=== PATIENT | female | born 1995 | race Caucasian/White ===

== ENCOUNTER 2018-09-10 10:12 | Emergency (ER) | payer SELFPAY ==
[~2018-09-10] VITALS: Ht 162.6 cm; Wt 55.8 kg
--- OUTSIDE RECORDS SUMMARY | 2018-09-10 10:17 | XMS REPORT ---
Author Author SALOMÓNJJANNIE [facility] Address Unknown Care Team Providers Care Retail Client Solutions Analyst Name Role Phone ANNIE YUEN Unavailable PROBLEMS Unknown Problems ALLERGIES Substance Reaction Event Type Date Status Codeine Sulfate Unknown Drug Allergy Feb, Active ENCOUNTERS Encounter Location Date Diagnosis [facility] [id number] [place] [phone] Feb, [facility] Z01.20 [facility] [id number] [place] [phone] Feb, [facility] [id number] [place] [phone] Jan, Acute allergic serous otitis media of both ears H65.113 IMMUNIZATIONS No Known Immunizations SOCIAL HISTORY Never Assessed REASON FOR VISIT PRAVEEN PLAN OF CARE Activity Details Follow Up prn Reason:hygiene VITAL SIGNS Blood pressure systolic 115 mmHg 2017-03-23 Blood pressure diastolic 87 mmHg 2017-03-23 MEDICATIONS No Known Medications RESULTS No Results PROCEDURES Procedure Date Ordered Result Body Site LTD ORAL EVALUATION - PROBLEM FOCUS Mar 23, 2017 INTRAORL-PERIAPICAL 1 FILM [id number] Mar 23, 2017 PANORAMIC FILM SEE ALSO CODE [id number] Mar 23, 2017 INSTRUCTIONS MEDICATIONS ADMINISTERED No Known Medications
--- OUTSIDE RECORDS SUMMARY | 2018-09-10 10:17 | XMS REPORT | Continuity of Care Document ---
Author Organization Unknown Address Unknown Allergies Active Description Code Type Severity Reaction Onset Reported/Identified Relationship to Patient Clinical Status Yes codeine [id number] Drug Allergy Unknown N/A 03/21/2015 Medications There is no data. Problems Date Dx Coded Attending Type Code Diagnosis Diagnosed By 03/21/2015 Rigoberto Banerjee J03.90 03/21/2015 Rigoberto Banerjee K12.2 Procedures There is no data. Results There is no data. Encounters ACCT No. Visit Date/Time Discharge Status Pt. Type Provider Facility Loc./Unit Complaint [id number] 09/05/2018 12:05:00 09/05/2018 23:59:59 [facility] Outpatient PILI LAO LAC [facility] [id number] 03/21/2015 14:06:00 03/21/2015 16:20:00 DIS Emergency Rigoberto Banerjee [facility]
--- OUTSIDE RECORDS SUMMARY | 2018-09-10 10:17 | XMS REPORT ---
Author Author BRIAN MARSH Organization [facility] Address [address] [place] [address] Care Team Providers Care Tanning Drum Operator Name Role Phone BRIAN MARSH Unavailable PROBLEMS Unknown Problems ALLERGIES Substance Reaction Event Type Date Status Codeine Sulfate Unknown Drug Allergy Nov, Active ENCOUNTERS Encounter Location Date Diagnosis [facility] [address] [phone] Nov, Sore throat J02.9 ; Acute nasopharyngitis (common cold) J00 and Cough R05 [facility] [id number] [place] [phone] Feb, Dental examination Z01.20 [facility] [id number] [place] [phone] Feb, [facility] [id number] [place] [phone] Jan, Acute allergic serous otitis media of both ears H65.113 IMMUNIZATIONS No Known Immunizations SOCIAL HISTORY Never Assessed REASON FOR VISIT Sore throat for the last few days JStrasserRN PLAN OF CARE Activity Details Follow Up 1 Week, prn Reason:if symptoms worsen or not improving VITAL SIGNS Height 64 in 2017-12-03 Weight 114.6 lbs 2017-12-03 Temperature 98.4 degrees Fahrenheit 2017-12-03 Heart Rate 84 bpm 2017-12-03 Respiratory Rate 20 2017-12-03 BMI 19.67 kg/m2 2017-12-03 Blood pressure systolic 120 mmHg 2017-12-03 Blood pressure diastolic 80 mmHg 2017-12-03 MEDICATIONS Medication Instructions Dosage Frequency Start Date End Date Duration Status Flonase 50 MCG/ACT Nasally twice a day 1 spray in each nostril 12h Nov, 30 day(s) Active Benzonatate 100 mg Orally Three times a day 1 capsule as needed 8h Nov, Nov, 05 days Active RESULTS Name Result Date Reference Range STREP A (IN HOUSE) 2017-12-03 STREP A negative Control + Lot # [id number] Exp date 2020-02-08 PROCEDURES Procedure Date Ordered Result Body Site STREP A ASSAY W/OPTIC Dec 03, 2017 INSTRUCTIONS MEDICATIONS ADMINISTERED No Known Medications MEDICAL (GENERAL) HISTORY Type Description Date Surgical History tonsillectomy
--- OUTSIDE RECORDS SUMMARY | 2018-09-10 10:17 | XMS REPORT | Continuity of Care Document ---
Author Author [facility] Address Unknown Phone Unavailable Care Team Providers Care Irs Agent Name Role Phone Patient States, No PCP Unavailable Unavailable Insurance Providers Payer Name Policy Number Subscriber Name Relationship Self-Pay Self-Pay AMBROSE RUIZ Self Advance Directives Directive Response Recorded Date/Time Advance Directives: No 03/21/15 1:58pm Chief Complaint and Reason for Visit Reason for Visit Acute tonsillitis Problems Medical Problems Problem Onset Date Status Acute tonsillitis Unknown Active Medications Medication Dose Route Sig Days/Qty Instructions Order Date Discontinued Date Status Amoxicillin (Amoxil*) 500 MG CAPSULE 500 MG ORAL Three times daily For infection 30 Qty 03/21/15 Active Family History Relationship Name Date of Condition Age ( At Onset ) Cause of Age ( At ) Age Gender Recorded Date/Time MOTHER Family history of cardiovascular disease F 03/21/15 1414 Social History Query Response Start Date Stop Date Smoking status: Never smoker Hospital Discharge Instructions No hospital discharge instructions. Plan of Care Discharge Date 03/21/15 4:20pm Disposition HOME, SELF-CARE or ASST LIVING Condition at Discharge Stable Instructions/Education Provided Tonsillitis (ED) Prescriptions See Medications Section [facility] Additional Instructions/Education -- Your strep and mononucleosis tests today are negative and the rest of your lab work is within normal limits. You have been given a long-acting steroid to help reduce inflammation in your throat. -- Take your antibiotic as directed. A prescription has been transmitted to your pharmacy of choice. -- For pain, take ohbw-lhj-ipacvie medicine, may use generic, as follows: 1000mg acetaminophen (two extra-strength Tylenol) every eight hours, plus 400mg ibuprofen (two 200 mg tabs, Advil/Motrin) every 8 hours. Keep a chart and take medications on a regularly scheduled basis. DO NOT exceed recommended dose. -- Please call the office of your primary care provider within 24-48 hours make arrangements for recheck and follow-up care. Return to the ER at any time for worsening or worrisome symptoms. Some of your test results may not be complete prior to your leaving the Emergency Department. The Emergency Department is not authorized to give test results over the phone. Please contact the doctor's office listed on form for your final results. Follow up with your primary care physician or return to the Emergency Department for worsening or worrisome symptoms. * Emergency Department phone number: [phone] MEDICAL RECORD If you need copies of your X-rays, call [phone]. If you need copies of your medical record, including lab results, a signed authorization for release of records will be required. A telephone call for release of Health Information is not allowed. BILLING Billing can sometimes be confusing and frustrating. To help avoid confusion in the future, please take a moment to acquaint yourself with the billing parties for services. SERVICE BILLING [facility] ED Physician Services [phone] X-rays [facility] Patients will receive bills for services from the appropriate provider. If have any questions about your [facility] bill, our staff will be happy to assist you. Please call [phone] and ask for the billing department. THANK YOU for choosing [facility] as your emergency care provider. Care Plan and Goals ~~Discharge Care Plan~~ Problem: Sore throat Goal: Pain decreased from sore throat. Instructions: Gargle with warm salt water to help reduce swelling and pain. Drink plenty of fluids. Hot fluids, such as tea or soup, may help decrease throat irritation. Take medication(s) as directed. Follow up with primary care physician as directed. Functional Status No functional status results. Allergies, Adverse Reactions, Alerts Allergen Type Severity Reaction Status Last Updated codeine Allergy Unknown Active 03/21/15 Immunizations No Known History of Immunizations. Vital Signs Vital Reading Collection Date/Time Result Blood Pressure 03/21/15 4:18pm 110/61 Blood Pressure Source 03/21/15 4:18pm SI Patient Temperature 03/21/15 4:18pm 97.7 Temperature Source 03/21/15 4:18pm O Respiratory Rate 03/21/15 4:18pm 18 Pulse Rate 03/21/15 4:18pm 85 Pulse Location 03/21/15 4:18pm DYN Bedside Pulse Oximetry 03/21/15 4:18pm 97 Height 03/21/15 1:58pm 162.6 cm Height 03/21/15 1:58pm 5 ft 4 in Weight 03/21/15 1:58pm 46.4 kg Weight 03/21/15 1:58pm 102.0 lb Body Mass Index 03/21/15 1:58pm 17.5 Procedures No Known History of Procedures. Results Test Source Date Result Interp. Ref. Range Comments Group A Streptococcus Screen 03/21/15 NEGATIVE - ALL NEGATIVES FOR GROUP A STREP BY EIA WILL BE CONFIRMED BY CULTURE. Basophils # 03/21/15 0.0 0.0 - 0.2 Basophils % 03/21/15 0.3 % 0.0 - 2.0 Eosinophils # 03/21/15 0.1 0.0 - 0.7 Eosinophils % 03/21/15 1.5 % 0 - 4.0 Granulocytes # 03/21/15 4.2 1.4 - 6.5 Granulocytes (%) 03/21/15 71.6 % 42.2 - 75.2 Hematocrit 03/21/15 42.2 % 37.0 - 47.0 Hemoglobin 03/21/15 13.7 g/dl 12.5 - 16.0 Lymphocytes # 03/21/15 1.1 L 1.2 - 3.4 Lymphocytes % 03/21/15 19.4 % L 20.0 - 51.0 Mean Corpuscular Hemoglobin 03/21/15 30 pg 27.0 - 31.0 Mean Corpuscular Hemoglobin Concent 03/21/15 33 g/dl L 33.0 - 37.0 Mean Corpuscular Volume 03/21/15 94 fl 80.0 - 100.0 Mean Platelet Volume 03/21/15 11.0 fl H 7.4 - 10.4 Monocytes # 03/21/15 0.4 0.1 - 0.6 Monocytes % 03/21/15 7.0 % 1.7 - 9.3 Platelet Count 03/21/15 157 K/mm3 130 - 400 Red Blood Count 03/21/15 4.51 M/mm3 4.10 - 5.30 Red Cell Distribution Width 03/21/15 12.0 % 11.5 - 14.5 White Blood Count 03/21/15 5.9 K/mm3 4.8 - 10.8 Alanine Aminotransferase (ALT/SGPT) 03/21/15 19 U/L 9 - 52 Albumin 03/21/15 4.6 gm/dL 3.5 - 5.0 Alkaline Phosphatase 03/21/15 76 U/L 50 - 136 Anion Gap 03/21/15 11 mmol/L 7 - 16 Aspartate Amino Transf (AST/SGOT) 03/21/15 10 U/L L 15 - 37 Blood Urea Nitrogen 03/21/15 6 mg/dL L 7 - 17 Calcium Adjusted for Albumin 03/21/15 9.2 mg/dL 8.4 - 10.2 Calcium Level 03/21/15 9.7 mg/dL 8.4 - 10.2 Carbon Dioxide Level 03/21/15 27 mmol/L 22 - 30 Chloride Level 03/21/15 105 mmol/L 98 - 107 Creatinine 03/21/15 0.78 mg/dL 0.52 - 1.04 Estimated GFR () 03/21/15 113 - Estimated GFR (Non- 03/21/15 93 - Glucose Level 03/21/15 98 mg/dL 74 - 106 Potassium Level 03/21/15 4.5 mmol/L 3.4 - 5.0 Serum Total Protein 03/21/15 8.3 gm/dL H 6.4 - 8.2 Sodium Level 03/21/15 144 mmol/L 137 - 145 Total Bilirubin 03/21/15 0.5 mg/dL 0.0 - 1.0 Monoscreen 03/21/15 NEGATIVE - Encounters Encounter Location Date/Time Departed Emergency [facility] 03/21/15 4:20pm Recent Diagnosis Acute tonsillitis
[2018-09-10 10:45] LABS: BILIRUBIN,URINE NEGATIVE (NEGATIVE); CLARITY,URINE SLIGHTLY CLOUDY; COLOR,URINE YELLOW; GLUCOSE, URINE (UA) NEGATIVE (NEGATIVE); KETONES,URINE NEGATIVE (NEGATIVE); LEUKOCYTE ESTERASE ,URINE 2+ (NEGATIVE); NITRITE,URINE NEGATIVE (NEGATIVE); PH,URINE 5 (5-9); PROTEIN,URINE NEGATIVE (NEGATIVE); UROBILINOGEN,URINE NORMAL (NORMAL)
[2018-09-10] MEDS ORDERED: KETOROLAC 30 MG/ML VIAL IVP ONE (10:45)
[2018-09-10 10:46] LABS: BASOPHILS % (AUTO) 0 % (0-10); EOSINOPHILS # (AUTO) 0.1 10^3/uL (0.0-0.3); EOSINOPHILS % (AUTO) 1 % (0-10); HEMATOCRIT 43 % (35-52); HEMOGLOBIN 14.6 G/DL (11.5-16.0); LYMPHOCYTES # (AUTO) 1.7 X 10^3 (1.0-4.0); LYMPHOCYTES % (AUTO) 15 % (12-44); MEAN CORPUSCULAR HEMOGLOBIN 30 PG (25-34); MEAN CORPUSCULAR HGB CONC 34 G/DL (32-36); MEAN CORPUSCULAR VOLUME 89 FL (80-99); MEAN PLATELET VOLUME 11.2 FL (7.4-10.4); MONOCYTES # (AUTO) 0.8 X 10^3 (0.0-1.0); MONOCYTES % (AUTO) 7 % (0-12); NEUTROPHILS % (AUTO) 78 % (42-75); PLATELET COUNT 194 10^3/uL (130-400); RED CELL DISTRIBUTION WIDTH 12.9 % (10.0-14.5); WHITE BLOOD COUNT 11.5 10^3/uL (4.3-11.0)
--- NOTE | 2018-09-10 10:48 | ED Abdominal Pain ---
General Chief Complaint: Abdominal/GI Problems Stated Complaint: STOMACH PAIN Nursing Triage Note: Pt complaining of RLQ pain that started last Tuesday. Pt went to doctor on tuesday and they said to return if not feeling better in a few days. Pt has intermittent nausea with the lower abd pain. Sepsis Screen: No Definite Risk Source of Information: Patient Exam Limitations: No Limitations History of Present Illness Date Seen by Provider: September 10, 2018 Time Seen by Provider: 10:46 Initial Comments To ER lower abdominal pain for the past week. Last weekend at the onset of this pain she was seen by primary care without etiology identified. The pain initially began the left lower quadrant and had radiated to the right lower quadrant. For the past few days the pain has been more consistent to the right lower abdomen. She reports chills but no fevers. Nausea but no vomiting. No bowel changes no dysuria. Denies vaginal discharge. Pain is 7 out of 10 when lying flat and 10 out of 10 when standing upright. Timing/Duration: 1-2 Days Severity/Quality: Moderate Location: RLQ, Suprapubic Radiation: No Radiation Activities at Onset: None Associated Symptoms: Nausea/Vomiting Allergies and Home Medications Allergies Coded Allergies: codeine (Verified Allergy, Unknown, 09/10/18) Home Medications Cefuroxime Axetil 250 Mg Tablet, 250 MG PO BID Prescribed by: WAN TAMEZ on 09/10/18 1309 Hydrocodone/Acetaminophen 1 Each Tablet, 1 TAB PO Q4-6HR PRN for PAIN-SEVERE Prescribed by: WAN TAMEZ on 09/10/18 1309 Patient Home Medication List Home Medication List Reviewed: Yes Review of Systems Review of Systems Constitutional: see HPI EENTM: No Symptoms Reported Respiratory: No Symptoms Reported Cardiovascular: No Symptoms Reported Gastrointestinal: See HPI, Abdominal Pain, Nausea Genitourinary: No Symptoms Reported Musculoskeletal: no symptoms reported Skin: no symptoms reported Psychiatric/Neurological: No Symptoms Reported Endocrine: No Symptoms Reported Hematologic/Lymphatic: No Symptoms Reported Past Oqfptqd-Adtnvj-Pnwull Hx Patient Social History Alcohol Use: Denies Use Recreational Drug Use: No Smoking Status: Never a Smoker 2nd Hand Smoke Exposure: No Recent Foreign Travel: No Contact w/Someone Who Travel: No Recent Infectious Disease Expo: No Recent Hopitalizations: No Seasonal Allergies Seasonal Allergies: No Past Medical History Surgeries: Yes Tonsillectomy Respiratory: No Cardiac: No Neurological: No Genitourinary: No Gastrointestinal: No Musculoskeletal: No Endocrine: No HEENT: No Cancer: No Psychosocial: No Integumentary: No Blood Disorders: No Physical Exam Vital Signs Vital Signs - First Documented 09/10/18 10:14 Temp 97.7 Pulse 102 Resp 16 B/P (MAP) 151/98 (115) Pulse Ox 100 O2 Delivery Room Air Capillary Refill : Less Than 3 Seconds Height/Weight/BMI Height: 5'4.00" Weight: 123lbs. oz. 55.267578ge; BMI Method:Stated General Appearance: WD/WN, no apparent distress HEENT: PERRL/EOMI, normal ENT inspection Neck: non-tender, full range of motion Respiratory: no respiratory distress, no accessory muscle use Gastrointestinal: normal bowel sounds, soft, tenderness (suprapubic both lower quadrant) Extremities: normal range of motion, non-tender Neurologic/Psychiatric: alert, normal mood/affect, oriented x 3 Skin: normal color, warm/dry Progress/Results/Core Measures Results/Orders Lab Results Laboratory Tests Test 09/10/18 10:20 09/10/18 10:23 Range/Units Urine Color YELLOW Urine Clarity SLIGHTLY CLOUDY Urine pH 5 5-9 Urine Specific Backus 1.025 H 1.016-1.022 Urine Protein NEGATIVE NEGATIVE Urine Glucose (UA) NEGATIVE NEGATIVE Urine Ketones NEGATIVE NEGATIVE Urine Nitrite NEGATIVE NEGATIVE Urine Bilirubin NEGATIVE NEGATIVE Urine Urobilinogen NORMAL NORMAL MG/DL Urine Leukocyte Esterase 2+ H NEGATIVE Urine RBC (Auto) NEGATIVE NEGATIVE Urine RBC NONE /HPF Urine WBC 5-10 H /HPF Urine Squamous Epithelial Cells 5-10 /HPF Urine Crystals NONE /LPF Urine Bacteria MODERATE H /HPF Urine Casts NONE /LPF Urine Mucus SMALL H /LPF Urine Culture Indicated YES White Blood Count 11.5 H 4.3-11.0 10^3/uL Red Blood Count 4.83 4.35-5.85 10^6/uL Hemoglobin 14.6 11.5-16.0 G/DL Hematocrit 43 35-52 % Mean Corpuscular Volume 89 80-99 FL Mean Corpuscular Hemoglobin 30 25-34 PG Mean Corpuscular Hemoglobin Concent 34 32-36 G/DL Red Cell Distribution Width 12.9 10.0-14.5 % Platelet Count 194 130-400 10^3/uL Mean Platelet Volume 11.2 H 7.4-10.4 FL Neutrophils (%) (Auto) 78 H 42-75 % Lymphocytes (%) (Auto) 15 12-44 % Monocytes (%) (Auto) 7 0-12 % Eosinophils (%) (Auto) 1 0-10 % Basophils (%) (Auto) 0 0-10 % Neutrophils # (Auto) 9.0 H 1.8-7.8 X 10^3 Lymphocytes # (Auto) 1.7 1.0-4.0 X 10^3 Monocytes # (Auto) 0.8 0.0-1.0 X 10^3 Eosinophils # (Auto) 0.1 0.0-0.3 10^3/uL Basophils # (Auto) 0.0 0.0-0.1 10^3/uL Sodium Level 138 135-145 MMOL/L Potassium Level 3.5 L 3.6-5.0 MMOL/L Chloride Level 105 98-107 MMOL/L Carbon Dioxide Level 20 L 21-32 MMOL/L Anion Gap 13 5-14 MMOL/L Blood Urea Nitrogen 11 7-18 MG/DL Creatinine 0.78 0.60-1.30 MG/DL Estimat Glomerular Filtration Rate > 60 BUN/Creatinine Ratio 14 Glucose Level 100 70-105 MG/DL Calcium Level 9.8 8.5-10.1 MG/DL Corrected Calcium 8.5-10.1 MG/DL Total Bilirubin 0.5 0.1-1.0 MG/DL Aspartate Amino Transf (AST/SGOT) 10 5-34 U/L Alanine Aminotransferase (ALT/SGPT) 21 0-55 U/L Alkaline Phosphatase 62 40-136 U/L Total Protein 7.8 6.4-8.2 GM/DL Albumin 4.7 H 3.2-4.5 GM/DL Serum Test, Qualitative NEGATIVE NEGATIVE My Orders Orders - WAN TAMEZ APRN Cbc With Automated Diff (09/10/18 10:39) Comprehensive Metabolic Panel (09/10/18 10:39) Ua Culture If Indicated (09/10/18 10:39) Hcg,Qualitative Serum (09/10/18 10:39) Ed Iv/Invasive Line Start (09/10/18 10:39) Ketorolac Injection (Toradol Injection) (09/10/18 10:45) Urine Culture (09/10/18 10:20) Ct Abdomen/Pelvis W (09/10/18 11:12) Iohexol Injection (Omnipaque 350 Mg/Ml 1 (09/10/18 11:45) Received Contrast (Hold Metformin- Contr (09/10/18 11:45) Ns (Ivpb) (Sodium Chloride 0.9%) (09/10/18 11:45) Medications Given in ED Current Medications Medications Dose Ordered Sig/Christian Route Start Time Stop Time Status Last Admin Dose Admin Iohexol 100 ml ONCE ONCE IV 09/10/18 11:45 09/10/18 11:47 DC 09/10/18 12:14 100 ML Ketorolac Tromethamine 15 mg ONCE ONCE IVP 09/10/18 10:45 09/10/18 10:46 DC 09/10/18 10:54 15 MG Sodium Chloride 250 ml ONCE ONCE IV 09/10/18 11:45 09/10/18 11:47 DC 09/10/18 12:14 80 ML Vital Signs/I&O 09/10/18 09/10/18 10:14 12:18 Temp 97.7 Pulse 102 88 Resp 16 16 B/P (MAP) 151/98 (115) 118/74 (89) Pulse Ox 100 100 O2 Delivery Room Air Room Air Blood Pressure Mean: 115 Departure Communication (Admissions) Her symptoms have been present for one week not consistent with appendicitis. Her CT failed to adequately visualize the appendix but there are no sensory signs of appendicitis. She does have urinary tract infection and right ovarian cyst which likely in combination is the cause of her bilateral lower quadrant abdominal pain. Impression Primary Impression: Urinary tract infection Qualified Codes: N30.00 - Acute cystitis without hematuria Additional Impression: Ovarian cyst Qualified Codes: N83.209 - Unspecified ovarian cyst, unspecified side Disposition: HOME, SELF-CARE Condition: Stable Departure-Patient Inst. Decision time for Depature: 13:07 Referrals: NO,LOCAL PHYSICIAN (PCP/Family) Primary Care Physician Patient Instructions: Ovarian Cyst (DC), Urinary Tract Infection, Adult (DC) Add. Discharge Instructions: 1. Antibiotic as directed 2. Tylenol and ibuprofen for pain control 3. Return to ER for any concerns. All discharge instructions reviewed with patient and/or family. Voiced understanding. Scripts Hydrocodone/Acetaminophen ([place] 5-325 Tablet) 1 Each Tablet 1 TAB PO Q4-6HR PRN for PAIN-SEVERE MDD 10 TABS for 7 Days, #10 TAB Prov: WAN TAMEZ APRN 09/10/18 Cefuroxime Axetil (Cefuroxime) 250 Mg Tablet 250 MG PO BID, #10 TAB Prov: WAN TAMEZ APRN 09/10/18 WAN TAMEZ APRN September 10, 2018 10:48
[2018-09-10 10:53] LABS: BACTERIA,URINE MODERATE /HPF
[2018-09-10 10:58] LABS: ALANINE AMINOTRANSFERASE 21 U/L (0-55); ALBUMIN 4.7 GM/DL (3.2-4.5); ALKALINE PHOSPHATASE 62 U/L (40-136); BILIRUBIN,TOTAL 0.5 MG/DL (0.1-1.0); BUN/CREATININE RATIO 14; CALCIUM 9.8 MG/DL (8.5-10.1); CARBON DIOXIDE 20 MMOL/L (21-32); CHLORIDE 105 MMOL/L (98-107); CREATININE SERUM 0.78 MG/DL (0.60-1.30); GFR ESTIMATED > 60; GLUCOSE 100 MG/DL (70-105); POTASSIUM 3.5 MMOL/L (3.6-5.0); SODIUM 138 MMOL/L (135-145); TOTAL PROTEIN 7.8 GM/DL (6.4-8.2)
[2018-09-10] MEDS ORDERED: HOLD METFORMIN - RECEIVED CONTRAST 20 ML VIAL IV SCH (11:45)
[2018-09-10] MEDS ORDERED: IOHEXOL 350 MG/ML 100 ML (OMNIPAQUE 350) VIAL IV ONE (11:45)
[2018-09-10] MEDS ORDERED: NS 250 ML (IVPB) BAG IV ONE (11:45)
[2018-09-10 12:18] VITALS: BP 118/74
--- NOTE | 2018-09-10 12:42 | Diagnostic Imaging Report ---
PROCEDURE: CT abdomen and pelvis with contrast. TECHNIQUE: Multiple contiguous axial images were obtained through the abdomen and pelvis after administration of intravenous contrast. Auto Exposure Controls were utilized during the CT exam to meet ALARA standards for radiation dose reduction. INDICATION: Approximately one week history of right lower quadrant abdominal pain. Intermittent nausea. CORRELATION STUDY: None. FINDINGS: LIVER: Unremarkable. GALLBLADDER: Present and unremarkable. No bile duct dilatation. SPLEEN: Unremarkable. PANCREAS: Unremarkable. ADRENAL GLANDS: Unremarkable. KIDNEYS: Normal configuration. No calcification or obstruction. ABDOMINAL AORTA: Unremarkable, nonaneurysmal. GASTROINTESTINAL TRACT: Stomach relatively collapsed but does contain some residual gastric contents. A few mildly prominent fluid-filled loops of small bowel are present. Slight hyperemia suggested could be reflective of nonspecific enteritis. There is some fluid in the proximal colon. Mild severity distal colonic fecal retention. What may be portions of very short appendix project medially without findings to suggest acute appendicitis. URINARY BLADDER: Unremarkable. REPRODUCTIVE: Uterus is mildly prominent. Endometrium does appear to be overall thickened with heterogeneous including some increased density in the endometrial canal, could be reflective of some blood products. Bicornuate configuration not excluded. 3 x 3.5 cm low-density mass right adnexa compatible with an ovarian cyst. Small amount of pelvic fluid. OSSEOUS STRUCTURES: No acute abnormality. OTHER: None. IMPRESSION: 1. What appears to be the appendix is very limited in evaluation but demonstrates no findings to suggest acute appendicitis. 2. Mildly thickened enhancing loops of small bowel suggestive of potential nonspecific enteritis. No bowel obstruction. 3. Right ovarian cyst. There is prominent appearance about the uterus and endometrium. This includes some high density endometrial canal contents, could be reflective of blood products and owing to patient's menstrual cycle. If further assessment is desired, pelvic ultrasound imaging recommended. Small amount of pelvic fluid is within physiologic range. Dictated by: Dictated on workstation # [id number]
[2018-09-10] MEDS ORDERED: HYDR-4226 PO (13:09)
[2018-09-10] MEDS ORDERED: CEFU250T80 PO (13:09)
[2018-09-10 13:57] VITALS: BP 106/68
== END 2018-09-10 13:57 | disposition home or self-care (01) ==
LOC: ER 10:13
DX: N39.0 Urinary tract infection, site not specified (principal); N83.201 Unspecified ovarian cyst, right side; Z88.5 Allergy status to narcotic agent; Z90.89 Acquired absence of other organs
CPT/HCPCS: 36415; 74177; 80053; 81000; 84703; 85025; 87088

== ENCOUNTER 2021-07-26 14:17 | Emergency (ER) | payer BC ==
[~2021-07-26] VITALS: Ht 162.5 cm; Wt 63.5 kg
[~2021-07-26 14:17] MED LIST: CEFU250T80 PO; HYDR-4226 PO
[2021-07-26 14:52] LABS: BASOPHILS % (AUTO) 0 % (0-10); EOSINOPHILS # (AUTO) 0.1 10^3/uL (0.0-0.3); EOSINOPHILS % (AUTO) 1 % (0-10); HEMATOCRIT 42 % (35-52); LYMPHOCYTES # (AUTO) 1.8 10^3/uL (1.0-4.0); LYMPHOCYTES % (AUTO) 25 % (12-44); MEAN CORPUSCULAR HEMOGLOBIN 30 pg (25-34); MEAN CORPUSCULAR HGB CONC 33 g/dL (32-36); MEAN CORPUSCULAR VOLUME 91 fL (80-99); MEAN PLATELET VOLUME 10.9 fL (9.0-12.2); MONOCYTES # (AUTO) 0.6 10^3/uL (0.0-1.0); MONOCYTES % (AUTO) 8 % (0-12); NEUTROPHILS # (AUTO) 4.7 10^3/uL (1.8-7.8); NEUTROPHILS % (AUTO) 66 % (42-75); PLATELET COUNT 195 10^3/uL (130-400); WHITE BLOOD COUNT 7.2 10^3/uL (4.3-11.0)
[2021-07-26 14:54] LABS: BILIRUBIN,URINE NEGATIVE (NEGATIVE); CLARITY,URINE CLEAR; COLOR,URINE YELLOW; GLUCOSE, URINE (UA) NEGATIVE (NEGATIVE); KETONES,URINE NEGATIVE (NEGATIVE); LEUKOCYTE ESTERASE ,URINE NEGATIVE (NEGATIVE); NITRITE,URINE NEGATIVE (NEGATIVE); PROTEIN,URINE NEGATIVE (NEGATIVE)
[2021-07-26 15:02] LABS: BACTERIA,URINE MODERATE /HPF; RBC,URINE 0-2 /HPF; SQUAMOUS EPITHELIAL CELL,UR 0-2 /HPF
[2021-07-26 15:05] LABS: ALBUMIN 4.2 GM/DL (3.2-4.5); POTASSIUM 3.6 MMOL/L (3.6-5.0)
[2021-07-26 15:06] LABS: CALCIUM 9.8 MG/DL (8.5-10.1)
[2021-07-26 15:07] LABS: TOTAL PROTEIN 7.4 GM/DL (6.4-8.2)
[2021-07-26 15:09] LABS: BILIRUBIN,TOTAL 0.5 MG/DL (0.1-1.0)
[2021-07-26 15:11] LABS: CREATININE SERUM 0.76 MG/DL (0.60-1.30)
--- NOTE | 2021-07-26 15:12 | ED GU-Female ---
General Chief Complaint: OB > 20 WEEKS Stated Complaint: 7 WKS PREG/BROWN DISCHARGE/ABD PAIN Nursing Triage Note: pt ambulatory to room. pt states she is 7 weeks , has had some slight lower abdominal pain for 1 week. pt states she noticed some brown discharge last night, and saw more brown discharge or brown blood today in the toilet. pt is unsure if it is discharge or blood. Source: patient Exam Limitations: no limitations (KELLY LANCE STUDENT) History of Present Illness Date Seen by Provider: Jul 26, 2021 Time Seen by Provider: 14:50 Initial Comments Mrs. Ruiz is a 26yo female with PMH of ovarian cyst, suspected endometriosis and lupus, and previous BV infection that presents today at 7 weeks due to discharge and abdominal pain. She states that this started about 1 week ago when she was developing low pelvic pain on the L side. Today she noticed a brownish discharge that she states maybe looks a bit like old blood but isnt sure. Denies any other kinds of discharge. No urinary symptoms. No vaginal pain or pain with intercourse. Pushing on her abdomen makes the pain better. She has an appointment in 2 days with [facility] to get a PCP and will be seeing Dr. Anderson in 10 days. She has not had any ultrasound at this point. No significant surgical history. Does not drink, smoke, or use drugs. (KELLY LANCE STUDENT) Allergies and Home Medications Allergies Coded Allergies: codeine (Verified Allergy, Unknown, 09/10/18) Patient Home Medication List Home Medication List Reviewed: Yes (YAZAN WONG MD) Cefuroxime Axetil (Cefuroxime) 250 Mg Tablet, 250 MG PO BID Prescribed by: WAN TAMEZ on 09/10/18 1309 Hydrocodone/Acetaminophen (Hydrocodone/Acetaminophen 5 MG/325 MG TAB) 1 Each Tablet, 1 TAB PO Q4-6HR PRN for PAIN-SEVERE Prescribed by: WAN TAMEZ on 09/10/18 1309 Review of Systems Review of Systems Constitutional: No chills, No fever EENTM: No hearing loss, No vision loss Respiratory: No cough, No short of breath Cardiovascular: No chest pain, No palpitations Gastrointestinal: abdominal pain (Pelvic L side); No constipation, No diarrhea, No melena, No nausea, No vomiting Genitourinary: denies dysuria, denies hematuria : Yes LMP: Jun 05, 2021 Musculoskeletal: No joint pain, No joint swelling Skin: No lesions, No rash Psychiatric/Neurological: Denies Headache, Denies Numbness (KELLY LANCE) Past Lscxpsd-Xtlgff-Zortcc Hx Patient Social History Tobacco Use?: No Use of E-Cig and/or Vaping dev: No Substance use?: No Alcohol Use?: No (YAZAN WONG MD) Seasonal Allergies Seasonal Allergies: No (KELLY LANCE) Past Medical History Surgeries: Yes Tonsillectomy Respiratory: No Cardiac: No Neurological: No Genitourinary: No Gastrointestinal: No Musculoskeletal: No Endocrine: No HEENT: No Cancer: No Psychosocial: No Integumentary: No Blood Disorders: No (KELLY LANCE) Surgeries: Yes ([place] teeth) Orthopedic, Tonsillectomy Respiratory: Yes Asthma Reproductive Disorders: Yes Female Reproductive Disorders: Endometriosis (Suspected but not confirmed), Ovarian Cyst Genitourinary: Yes (Bacterial vaginosis) Endocrine: Yes Lupus (Suspected but not confirmed) (YAZAN WONG MD) Physical Exam Vital Signs Vital Signs - First Documented 07/26/21 14:24 Temp 36.1 Pulse 103 Resp 16 B/P (MAP) 128/86 (100) Pulse Ox 99 (YAZAN WONG MD) Vital Signs Capillary Refill : (KELLY LANCE) Height, Weight, BMI Height: 5'4.00" Weight: 123lbs. oz. 55.713596ax; 24.00 BMI Method:Stated (KELLY LANCE) General Appearance: WD/WN, no apparent distress, thin HEENT: PERRL/EOMI, normal ENT inspection Neck: normal inspection Cardiovascular: regular rate, rhythm, no murmur Respiratory: lungs clear, normal breath sounds, no respiratory distress Gastrointestinal: non tender, soft Extremities: non-tender, normal inspection Neurologic/Psychiatric: alert, normal mood/affect, oriented x 3 Skin: normal color, warm/dry (YAZAN WONG MD) Progress/Results/Core Measures Suspected Sepsis SIRS Temperature: Pulse: 103 Respiratory Rate: 16 Laboratory Tests 07/26/21 14:44: White Blood Count 7.2 Blood Pressure 128 /86 Mean: 100 Laboratory Tests 07/26/21 14:44: Platelet Count 195 (KELLY LANCE MED STUDENT) Results/Orders Lab Results Laboratory Tests Test 07/26/21 14:44 Range/Units White Blood Count 7.2 4.3-11.0 10^3/uL Red Blood Count 4.67 3.80-5.11 10^6/uL Hemoglobin 14.0 11.5-16.0 g/dL Hematocrit 42 35-52 % Mean Corpuscular Volume 91 80-99 fL Mean Corpuscular Hemoglobin 30 25-34 pg Mean Corpuscular Hemoglobin Concent 33 32-36 g/dL Red Cell Distribution Width 12.0 10.0-14.5 % Platelet Count 195 130-400 10^3/uL Mean Platelet Volume 10.9 9.0-12.2 fL Immature Granulocyte % (Auto) 0 % Neutrophils (%) (Auto) 66 42-75 % Lymphocytes (%) (Auto) 25 12-44 % Monocytes (%) (Auto) 8 0-12 % Eosinophils (%) (Auto) 1 0-10 % Basophils (%) (Auto) 0 0-10 % Neutrophils # (Auto) 4.7 1.8-7.8 10^3/uL Lymphocytes # (Auto) 1.8 1.0-4.0 10^3/uL Monocytes # (Auto) 0.6 0.0-1.0 10^3/uL Eosinophils # (Auto) 0.1 0.0-0.3 10^3/uL Basophils # (Auto) 0.0 0.0-0.1 10^3/uL Immature Granulocyte # (Auto) 0.0 0.0-0.1 10^3/uL Urine Color YELLOW Urine Clarity CLEAR Urine pH 6.0 5-9 Urine Specific [place] 1.020 1.016-1.022 Urine Protein NEGATIVE NEGATIVE Urine Glucose (UA) NEGATIVE NEGATIVE Urine Ketones NEGATIVE NEGATIVE Urine Nitrite NEGATIVE NEGATIVE Urine Bilirubin NEGATIVE NEGATIVE Urine Urobilinogen 0.2 < = 1.0 MG/DL Urine Leukocyte Esterase NEGATIVE NEGATIVE Urine RBC (Auto) 1+ H NEGATIVE Urine RBC 0-2 /HPF Urine WBC 2-5 /HPF Urine Squamous Epithelial Cells 0-2 /HPF Urine Renal Epithelial Cells NONE /HPF Urine Crystals NONE /LPF Urine Bacteria MODERATE H /HPF Urine Casts NONE /LPF Urine Mucus NEGATIVE /LPF Urine Culture Indicated YES Sodium Level 138 135-145 MMOL/L Potassium Level 3.6 3.6-5.0 MMOL/L Chloride Level 104 98-107 MMOL/L Carbon Dioxide Level 21 21-32 MMOL/L Anion Gap 13 5-14 MMOL/L Blood Urea Nitrogen 9 7-18 MG/DL Creatinine 0.76 0.60-1.30 MG/DL Estimat Glomerular Filtration Rate 110 BUN/Creatinine Ratio 12 Glucose Level 93 70-105 MG/DL Calcium Level 9.8 8.5-10.1 MG/DL Corrected Calcium 9.6 8.5-10.1 MG/DL Total Bilirubin 0.5 0.1-1.0 MG/DL Aspartate Amino Transf (AST/SGOT) 6 5-34 U/L Alanine Aminotransferase (ALT/SGPT) 11 0-55 U/L Alkaline Phosphatase 61 40-136 U/L Total Protein 7.4 6.4-8.2 GM/DL Albumin 4.2 3.2-4.5 GM/DL Human Chorionic Gonadotropin, Quant 25570 H <5 MIU/ML (YAZAN WONG MD) My Orders Orders - YAZAN WONG MD Us Ob<14 Wks Sngle W/Transvag (07/26/21 15:47) (YAZAN WONG MD) Vital Signs/I&O 07/26/21 14:24 Temp 36.1 Pulse 103 Resp 16 B/P (MAP) 128/86 (100) Pulse Ox 99 (YAZAN WONG MD) Vital Signs/I&O Capillary Refill : (KELLY LANCE MED STUDENT) Blood Pressure Mean: 100 Progress Note : Progress Note Ultrasound revealed a normal intrauterine gestation with no ectopic . There was suggestion of urinary tract infection on urinalysis. Keflex was given. (YAZAN WONG MD) Diagnostic Imaging Diagonstic Imaging: Ultrasound Plain Films/CT/US/NM/MRI: pelvis Comments Ultrasound was discussed with the dental service technician and report reviewed. See report below: NAME: AMBROSE RUIZ [facility] REC#: [id number] PT STATUS: REG ER : 1995 PHYSICIAN: YAZAN WONG MD ADMIT DATE: 07/26/21/ER Draft Date of Exam:07/26/21 US OB<14 WKS SNGLE W/TRANSVAG HISTORY: Pelvic pain, . COMPARISON: None. FINDINGS: Transabdominal and transvaginal ultrasound of the pelvis was performed. There is a single live intrauterine gestation. heart rate measures 117 BPM. The crown-rump length measures 5.14 mm consistent with 6 weeks and 2 days gestation with an estimated date of delivery of 03/19/2022. The gestational sac has a normal shape, size and appearance. The maternal ovaries and adnexa appear normal. A yolk sac is seen. No free fluid is seen. IMPRESSION: Single live intrauterine gestation measuring at 6 weeks and 2 days. Dictated on workstation # [id number] Dict: 07/26/211710 Trans: 07/26/211718 [facility] [id number] Interpreted by: ANNIE TAM MD (YAZAN WONG MD) Departure Impression Primary Impression: Vaginal bleeding affecting early Additional Impression: Urinary tract infection Qualified Codes: N39.0 - Urinary tract infection, site not specified Disposition: 01 HOME, SELF-CARE Condition: Stable Departure-Patient Inst. Referrals: NO,LOCAL PHYSICIAN (PCP/Family) Primary Care Physician Patient Instructions: Bleeding In Early , Urinary Tract Infections in Adults Add. Discharge Instructions: Drink plenty of clear liquids to stay well-hydrated. Eat a well-balanced diet and take a vitamin. Keep your follow-up appointments with the primary care provider and maintenance associate. You may take Tylenol (acetaminophen) up to 1000 mg every 6 hours as needed for pain or discomfort. Complete your antibiotic as prescribed. Call with questions or concerns. Return to the ER if you have worsening symptoms. Observe vaginal rest (nothing in the vagina) until you are cleared in a follow-up appointment. Your ultrasound findings were as below: FINDINGS: Transabdominal and transvaginal ultrasound of the pelvis was performed. There is a single live intrauterine gestation. heart rate measures 117 BPM. The crown-rump length measures 5.14 mm consistent with 6 weeks and 2 days gestation with an estimated date of delivery of 03/19/2022. The gestational sac has a normal shape, size and appearance. The maternal ovaries and adnexa appear normal. A yolk sac is seen. No free fluid is seen. IMPRESSION: Single live intrauterine gestation measuring at 6 weeks and 2 days. All discharge instructions reviewed with patient and/or family. Voiced understanding. Scripts Cephalexin (Cephalexin) 500 Mg Tablet 500 MG PO TID, #20 TAB Prov: YAZAN WONG MD 07/26/21 Medical Student Attestation and Attending Note: I have personally interviewed and examined this patient along with Kelly Lance MS. I have reviewed student documentation including history, physical, and assessments. I agree with the documentation except where otherwise noted. (YAZAN WONG MD) Copy Copies To 1: DANIELA ANDERSON MD Copies To 2: GRUPO CHAMBERLAIN DEREK MED STUDENT Jul 26, 2021 15:12 YAZAN WONG MD Jul 26, 2021 16:12
--- NOTE | 2021-07-26 17:19 | Diagnostic Imaging Report ---
HISTORY: Pelvic pain, . COMPARISON: None. FINDINGS: Transabdominal and transvaginal ultrasound of the pelvis was performed. There is a single live intrauterine gestation. heart rate measures 117 BPM. The crown-rump length measures 5.14 mm consistent with 6 weeks and 2 days gestation with an estimated date of delivery of 03/19/2022. The gestational sac has a normal shape, size and appearance. The maternal ovaries and adnexa appear normal. A yolk sac is seen. No free fluid is seen. IMPRESSION: Single live intrauterine gestation measuring at 6 weeks and 2 days. Dictated by: Dictated on workstation # [id number]
[2021-07-26] MEDS ORDERED: CEPH500T PO (17:24)
[2021-07-26] MEDS ORDERED: CEPHALEXIN 250 MG (KEFLEX) CAP PO ONE (17:30)
[2021-07-26 17:38] VITALS: BP 118/77
== END 2021-07-26 17:40 | disposition home or self-care (01) ==
LOC: EDUNIT# 14:17 → ER 14:19
DX: O46.91 Antepartum hemorrhage, unspecified, first trimester (principal); O23.41 Unspecified infection of urinary tract in pregnancy, first trimester; Z3A.01 Less than 8 weeks gestation of pregnancy
CPT/HCPCS: 36415; 76801; 76817; 80053; 81000; 84702; 84703; 85025; 86900; 86901; 87088

== ENCOUNTER 2021-08-23 23:20 | Emergency (ER) | payer BC ==
[~2021-08-23] VITALS: Ht 162.5 cm; Wt 60.3 kg
[~2021-08-23 23:20] MED LIST changes: +CEPH500T PO
[2021-08-23] MEDS ORDERED: PROMETHAZINE INJ 25 MG/ML (PHENERGAN) AMP IVP ONE (23:45)
[2021-08-23] MEDS ORDERED: LACTATED RINGERS 1,000 ML IV ONE (23:45)
[2021-08-23 23:57] LABS: BASOPHILS % (AUTO) 0 % (0-10); BILIRUBIN,URINE NEGATIVE (NEGATIVE); CLARITY,URINE CLEAR; COLOR,URINE YELLOW; EOSINOPHILS # (AUTO) 0.1 10^3/uL (0.0-0.3); EOSINOPHILS % (AUTO) 1 % (0-10); GLUCOSE, URINE (UA) NEGATIVE (NEGATIVE); HEMATOCRIT 41 % (35-52); HEMOGLOBIN 13.6 g/dL (11.5-16.0); KETONES,URINE TRACE (NEGATIVE); LEUKOCYTE ESTERASE ,URINE TRACE (NEGATIVE); LYMPHOCYTES # (AUTO) 1.9 10^3/uL (1.0-4.0); LYMPHOCYTES % (AUTO) 18 % (12-44); MEAN CORPUSCULAR HEMOGLOBIN 30 pg (25-34); MEAN CORPUSCULAR HGB CONC 33 g/dL (32-36); MEAN CORPUSCULAR VOLUME 90 fL (80-99); MEAN PLATELET VOLUME 11.2 fL (9.0-12.2); MONOCYTES # (AUTO) 0.7 10^3/uL (0.0-1.0); MONOCYTES % (AUTO) 7 % (0-12); NEUTROPHILS # (AUTO) 7.7 10^3/uL (1.8-7.8); NEUTROPHILS % (AUTO) 75 % (42-75); NITRITE,URINE NEGATIVE (NEGATIVE); PH,URINE 5.5 (5-9); PLATELET COUNT 176 10^3/uL (130-400); PROTEIN,URINE NEGATIVE (NEGATIVE); WHITE BLOOD COUNT 10.4 10^3/uL (4.3-11.0)
[2021-08-24 00:06] LABS: BACTERIA,URINE LARGE /HPF
[2021-08-24 00:07] LABS: POTASSIUM 3.4 MMOL/L (3.6-5.0)
[2021-08-24 00:08] LABS: CALCIUM 9.8 MG/DL (8.5-10.1)
[2021-08-24 00:11] LABS: BILIRUBIN,TOTAL 0.2 MG/DL (0.1-1.0)
[2021-08-24 00:13] LABS: CREATININE SERUM 0.72 MG/DL (0.60-1.30)
[2021-08-24 00:16] LABS: MAGNESIUM 1.7 MG/DL (1.6-2.4)
--- NOTE | 2021-08-24 00:35 | ED GU-Female ---
General Chief Complaint: OB < 20 WEEKS Stated Complaint: 10 WKS PREG - VOMITING Nursing Triage Note: PT AMBULATORY INTO ER WITH COMPLAINT OF VOMITING X 1 HOUR. PT DENIES OTHER COMPLAINTS. PT IS 10 WEEKS . NO VOMITING IN ER ROOM OR WAITING ROOM. Source: patient Exam Limitations: no limitations History of Present Illness Date Seen by Provider: August 23, 2021 Time Seen by Provider: 23:37 Initial Comments This 1-year-old young lady presents to the emergency room at approximately 10 weeks gestational age with complaints of vomiting. She attempted to take Phener pat at home but could not keep it down. She feels lightheaded and weak. She denies any notable pelvic pain or vaginal bleeding. Allergies and Home Medications Allergies Coded Allergies: codeine (Verified Allergy, Unknown, 09/10/18) Patient Home Medication List Home Medication List Reviewed: Yes Cefuroxime Axetil (Cefuroxime) 250 Mg Tablet, 250 MG PO BID Prescribed by: WAN TAMEZ on 09/10/18 1309 Cephalexin (Cephalexin) 500 Mg Tablet, 500 MG PO TID Prescribed by: YAZAN CHAU on 07/26/21 1724 Cephalexin (Cephalexin) 500 Mg Tablet, 500 MG PO TID Prescribed by: YAZAN CHAU on 08/24/21 0036 Hydrocodone/Acetaminophen (Hydrocodone/Acetaminophen 5 MG/325 MG TAB) 1 Each Tablet, 1 TAB PO Q4-6HR PRN for PAIN-SEVERE Prescribed by: WAN TAMEZ on 09/10/18 1309 Promethazine HCl (Promethazine Suppository) 25 Mg Supp.rect, 25 MG RC TID PRN for NAUSEA/VOMITING Prescribed by: YAZAN CHAU on 08/24/21 0036 Review of Systems Review of Systems Constitutional: see HPI EENTM: no symptoms reported Respiratory: no symptoms reported Cardiovascular: other (Tachycardia) Gastrointestinal: see HPI Genitourinary: no symptoms reported : Yes Musculoskeletal: no symptoms reported Skin: no symptoms reported Psychiatric/Neurological: No Symptoms Reported Endocrine: No Symptoms Reported Hematologic/Lymphatic: No Symptoms Reported Past Lllahcl-Nueima-Wcfpbg Hx Patient Social History Tobacco Use?: No Use of E-Cig and/or Vaping dev: No Substance use?: No Alcohol Use?: No Pt feels they are or have been: No Immunizations Up To Date Influenza Vaccine Up-to-Date: No; Not Current Second COVID19 Vaccination Apolinar: 03/15 COVID19 Vaccine Sustainability Manager: NATALIE Seasonal Allergies Seasonal Allergies: No Past Medical History Surgeries: Yes ([place] teeth) Orthopedic, Tonsillectomy Respiratory: Yes Asthma Cardiac: No Neurological: No : Yes Reproductive Disorders: Yes Female Reproductive Disorders: Endometriosis, Ovarian Cyst Genitourinary: Yes (Bacterial vaginosis) Gastrointestinal: No Musculoskeletal: No Endocrine: Yes Lupus HEENT: No Cancer: No Psychosocial: No Integumentary: No Blood Disorders: No Physical Exam Vital Signs Vital Signs - First Documented 08/23/21 23:30 Temp 36.9 Pulse 91 Resp 18 B/P (MAP) 133/93 (106) Pulse Ox 97 O2 Delivery Room Air Capillary Refill : Less Than 3 Seconds Height, Weight, BMI Height: 5'4.00" Weight: 123lbs. oz. 55.212272ia; 22.00 BMI Method:Stated General Appearance: WD/WN, mild distress HEENT: PERRL/EOMI, normal ENT inspection Neck: normal inspection Cardiovascular: regular rate, rhythm, no edema, no murmur Respiratory: lungs clear, normal breath sounds, no respiratory distress, no accessory muscle use Gastrointestinal: normal bowel sounds, non tender, soft Extremities: normal inspection, no pedal edema Neurologic/Psychiatric: no motor/sensory deficits, alert, normal mood/affect, oriented x 3 Skin: normal color, warm/dry Progress/Results/Core Measures Suspected Sepsis SIRS Temperature: Pulse: 91 Respiratory Rate: 18 Laboratory Tests 08/23/21 23:49: White Blood Count 10.4 Blood Pressure 133 /93 Mean: 106 Laboratory Tests 08/23/21 23:49: Creatinine 0.72, Platelet Count 176, Total Bilirubin 0.2 Results/Orders Lab Results Laboratory Tests Test 08/23/21 23:49 Range/Units White Blood Count 10.4 4.3-11.0 10^3/uL Red Blood Count 4.57 3.80-5.11 10^6/uL Hemoglobin 13.6 11.5-16.0 g/dL Hematocrit 41 35-52 % Mean Corpuscular Volume 90 80-99 fL Mean Corpuscular Hemoglobin 30 25-34 pg Mean Corpuscular Hemoglobin Concent 33 32-36 g/dL Red Cell Distribution Width 12.6 10.0-14.5 % Platelet Count 176 130-400 10^3/uL Mean Platelet Volume 11.2 9.0-12.2 fL Immature Granulocyte % (Auto) 0 % Neutrophils (%) (Auto) 75 42-75 % Lymphocytes (%) (Auto) 18 12-44 % Monocytes (%) (Auto) 7 0-12 % Eosinophils (%) (Auto) 1 0-10 % Basophils (%) (Auto) 0 0-10 % Neutrophils # (Auto) 7.7 1.8-7.8 10^3/uL Lymphocytes # (Auto) 1.9 1.0-4.0 10^3/uL Monocytes # (Auto) 0.7 0.0-1.0 10^3/uL Eosinophils # (Auto) 0.1 0.0-0.3 10^3/uL Basophils # (Auto) 0.0 0.0-0.1 10^3/uL Immature Granulocyte # (Auto) 0.0 0.0-0.1 10^3/uL Urine Color YELLOW Urine Clarity CLEAR Urine pH 5.5 5-9 Urine Specific [place] >=1.030 1.016-1.022 Urine Protein NEGATIVE NEGATIVE Urine Glucose (UA) NEGATIVE NEGATIVE Urine Ketones TRACE H NEGATIVE Urine Nitrite NEGATIVE NEGATIVE Urine Bilirubin NEGATIVE NEGATIVE Urine Urobilinogen 0.2 < = 1.0 MG/DL Urine Leukocyte Esterase TRACE H NEGATIVE Urine RBC (Auto) NEGATIVE NEGATIVE Urine RBC NONE /HPF Urine WBC 2-5 /HPF Urine Squamous Epithelial Cells 5-10 /HPF Urine Crystals NONE /LPF Urine Bacteria LARGE H /HPF Urine Casts NONE /LPF Urine Mucus NEGATIVE /LPF Urine Culture Indicated YES Sodium Level 140 135-145 MMOL/L Potassium Level 3.4 L 3.6-5.0 MMOL/L Chloride Level 104 98-107 MMOL/L Carbon Dioxide Level 21 21-32 MMOL/L Anion Gap 15 H 5-14 MMOL/L Blood Urea Nitrogen 10 7-18 MG/DL Creatinine 0.72 0.60-1.30 MG/DL Estimat Glomerular Filtration Rate 117 BUN/Creatinine Ratio 14 Glucose Level 106 H 70-105 MG/DL Calcium Level 9.8 8.5-10.1 MG/DL Corrected Calcium 9.8 8.5-10.1 MG/DL Magnesium Level 1.7 1.6-2.4 MG/DL Total Bilirubin 0.2 0.1-1.0 MG/DL Aspartate Amino Transf (AST/SGOT) 7 5-34 U/L Alanine Aminotransferase (ALT/SGPT) 11 0-55 U/L Alkaline Phosphatase 54 40-136 U/L Total Protein 7.0 6.4-8.2 GM/DL Albumin 4.0 3.2-4.5 GM/DL My Orders Orders - YAZAN WONG MD Cbc With Automated Diff (08/23/21 23:37) Comprehensive Metabolic Panel (08/23/21 23:37) Magnesium (08/23/21 23:37) Ua Culture If Indicated (08/23/21 23:37) Ed Iv/Invasive Line Start (08/23/21 23:37) Lactated Ringers (Lr 1000 Ml Iv Solution (08/23/21 23:45) Promethazine Injection (Phenergan Injec (08/23/21 23:45) Urine Culture (08/23/21 23:49) Medications Given in ED Current Medications Medications Dose Ordered Sig/Christian Route Start Time Stop Time Status Last Admin Dose Admin Lactated Ringer's 1,000 ml @ 0 mls/hr Q0M ONCE IV 08/23/21 23:45 08/23/21 23:46 DC 08/23/21 23:50 999 MLS/HR Promethazine HCl 25 mg ONCE ONCE IVP 08/23/21 23:45 08/23/21 23:46 DC 08/23/21 23:49 25 MG Vital Signs/I&O 08/23/21 08/24/21 23:30 00:40 Temp 36.9 36.9 Pulse 91 83 Resp 18 18 B/P (MAP) 133/93 (106) 127/90 Pulse Ox 97 99 O2 Delivery Room Air Room Air Capillary Refill : Less Than 3 Seconds Blood Pressure Mean: 106 Progress Note : Time: 00:31 Progress Note Labs were relatively unremarkable. Urinalysis had slight suggestion of urinary tract infection. Patient does not have any urinary symptoms at this time. She will be provided with an antibiotic to start if she becomes symptomatic. Otherwise, she will wait until culture results to determine if she should treat. She was offered a prescription for Phenergan suppositories which she accepted. I offered to treat her headache which she declined. She prefers to go home and try to sleep it off. Departure Impression Primary Impression: Nausea/vomiting in Additional Impression: Acute headache Qualified Codes: R51.9 - Headache, unspecified Disposition: 01 HOME, SELF-CARE Condition: Improved Admissions Decision to Admit Reason: Admit from ER (General) Departure-Patient Inst. Referrals: [facility] (PCP/Family) Primary Care Physician Patient Instructions: Nausea and Vomiting of Add. Discharge Instructions: Drink plenty of clear liquids to stay well-hydrated. Eating small amounts of bland food periodically throughout the day helps control nausea better than eating a couple of larger meals. Use Phenergan (promethazine) as prescribed. If you cannot tolerate the tablet form due to active vomiting, you may try the suppository. You may also try Unisom (doxylamine) at bedtime to help control nausea the next day. Follow-up on your urine culture results either through contacting Dr. Quintanilla's office or the ER. Culture result should be available by Tuesday. Start the antibiotic (Keflex) if you develop symptoms of urinary tract infection in the meantime. The symptoms would include increasing urinary frequency, burning or discomfort with urination, foul-smelling urine, pelvic discomfort, etc. Return to care if you have worsening symptoms. Call your doctor's office with questions or concerns. All discharge instructions reviewed with patient and/or family. Voiced understanding. Scripts Cephalexin (Cephalexin) 500 Mg Tablet 500 MG PO TID, #21 TAB Prov: YAZAN WONG MD 08/24/21 Promethazine HCl (Promethazine Suppository) 25 Mg Supp.rect 25 MG RC TID PRN for NAUSEA/VOMITING, #10 SUPP.RECT Prov: YAZAN WONG MD 08/24/21 Copy Copies To 1: SUSHMA QUINTANILLA MD, JOSHUA T MD August 24, 2021 00:35
[2021-08-24] MEDS ORDERED: CEPH500T PO (00:36)
[2021-08-24] MEDS ORDERED: PROM25SU44 RC (00:36)
[2021-08-24 00:40] VITALS: BP 127/90
== END 2021-08-24 00:51 | disposition home or self-care (01) ==
LOC: EDUNIT# 23:20 → ER 23:22
DX: O21.0 Mild hyperemesis gravidarum (principal); O26.891 Other specified pregnancy related conditions, first trimester; R51.9 Headache, unspecified; Z3A.10 10 weeks gestation of pregnancy
CPT/HCPCS: 36415; 80053; 81000; 83735; 85025; 87088

== ENCOUNTER 2022-01-04 04:00 | Observation (INO) | payer BC, MEDICAID ==
[~2022-01-04] VITALS: Ht 162 cm; Wt 68.7 kg
[~2022-01-04 04:00] MED LIST changes: +PROM25SU44 RC
[2022-01-04 04:20] VITALS: BP 124/75
[2022-01-04 04:32] LABS: BILIRUBIN,URINE NEGATIVE (NEGATIVE); CLARITY,URINE SL CLOUDY; COLOR,URINE YELLOW; GLUCOSE, URINE (UA) NEGATIVE (NEGATIVE); KETONES,URINE 3+ (NEGATIVE); LEUKOCYTE ESTERASE ,URINE NEGATIVE (NEGATIVE); NITRITE,URINE NEGATIVE (NEGATIVE); PROTEIN,URINE 2+ (NEGATIVE)
[2022-01-04 04:41] LABS: BACTERIA,URINE FEW /HPF; RBC,URINE 0-2 /HPF; SQUAMOUS EPITHELIAL CELL,UR 0-2 /HPF
[2022-01-04] MEDS ORDERED: LACTATED RINGERS 1,000 ML IV ONE (04:49)
[2022-01-04] MEDS ORDERED: LACTATED RINGERS 1,000 ML IV SCH (05:00)
[2022-01-04] MEDS ORDERED: D5 LR IV SOLUTION 1,000 ML IV SCH (05:00)
[2022-01-04] MEDS ORDERED: ONDANSETRON 4 MG/2 ML (SDV) Z0FRAN IVP ONE (05:00)
[2022-01-04] MEDS ORDERED: ONDANSETRON 4 MG/2 ML (SDV) Z0FRAN ONE (05:02)
[2022-01-04] MEDS ORDERED: D5 LR IV SOLUTION 1,000 ML IV ONE (05:48)
[2022-01-04] MEDS: D5 LR IV SOLUTION 1,000 ML IV SCH ×2 (05:55→11:46)
[2022-01-04 07:30] VITALS: BP 110/72
[2022-01-04 07:55] LABS: BASOPHILS % (AUTO) 0 % (0-10); EOSINOPHILS % (AUTO) 0 % (0-10); HEMATOCRIT 35 % (35-52); LYMPHOCYTES # (AUTO) 0.5 10^3/uL (1.0-4.0); LYMPHOCYTES % (AUTO) 4 % (12-44); MEAN CORPUSCULAR HEMOGLOBIN 28 pg (25-34); MEAN CORPUSCULAR HGB CONC 32 g/dL (32-36); MEAN CORPUSCULAR VOLUME 88 fL (80-99); MEAN PLATELET VOLUME 11.1 fL (9.0-12.2); MONOCYTES # (AUTO) 0.4 10^3/uL (0.0-1.0); MONOCYTES % (AUTO) 3 % (0-12); NEUTROPHILS # (AUTO) 13.2 10^3/uL (1.8-7.8); NEUTROPHILS % (AUTO) 93 % (42-75); PLATELET COUNT 235 10^3/uL (130-400); WHITE BLOOD COUNT 14.3 10^3/uL (4.3-11.0)
[2022-01-04 08:15] LABS: ALBUMIN 3.3 GM/DL (3.2-4.5); BILIRUBIN,TOTAL 0.5 MG/DL (0.1-1.0); CALCIUM 8.6 MG/DL (8.5-10.1); CREATININE SERUM 0.62 MG/DL (0.60-1.30); POTASSIUM 3.4 MMOL/L (3.6-5.0); TOTAL PROTEIN 6.5 GM/DL (6.4-8.2)
[2022-01-04 08:18] LABS: LYMPHOCYTES % (MANUAL) 4 %; MONOCYTES % (MANUAL) 1 %; NEUTROPHILS % (MANUAL) 95 %; RBC MORPH NORMAL
[2022-01-04] MEDS ORDERED: ONDANSETRON 4 MG/2 ML (SDV) Z0FRAN IVP PRN (08:45)
[2022-01-04] MEDS ORDERED: PROMETHAZINE 25 MG (PHENERGAN) TAB PO PRN (09:15)
[2022-01-04] MEDS ORDERED: ONDANSETRON 4 MG (ZOFRAN) ORAL DISSOLVE TAB PO PRN (11:30)
[2022-01-04] MEDS ORDERED: PANTOPRAZOLE 40 MG (PROTONIX) VIAL IV NR (11:30)
[2022-01-04 12:36] VITALS: BP 112/78
[2022-01-04] MEDS ORDERED: AMOXICILLIN 500 MG (POLYMOX) CAP PO SCH (15:38)
--- NOTE | 2022-01-04 16:54 | Short Stay Summary ---
HPI History of Present Illness: 26 yo G1 at 30 weeks gestation presented to Labor and Delivery due to nausea/vomiting and diarrhea that began rather suddenly the night prior. She was also feeling some contractions after this occurred, but after admission and IVF she states they have resolved. She denies fever, denies other sick family members or exposures on initial exam, however later on the day her admission her SO started to become ill as well as others who she reported attended her baby shower the day prior at which they had ham sandwiches, turkey sandwiches and fresh fruits and vegetables. She states she has had COVID vaccinations. Source: patient Date seen by provider: Jan 05, 2022 Time Seen by Provider: 11:10 Attending Physician [place] PCP Admitting Physician: Liam Smith MD Attending Physician: Liam Smith MD Consult Date of Admission Jan 04, 2022 at 04:17 Home Medications Home Medications Reviewed patient Home Medication Reconciliation performed by pharmacy medication reconciliations tool maintenance technician and/or nursing. Patients Allergies have been reviewed. Allergies Coded Allergies: codeine (Verified Allergy, Unknown, 09/10/18) [id number] Hx Patient Social History Smoking Status: Never a Smoker 2nd Hand Smoke Exposure: No Recent Hopitalizations: No Immunizations Up To Date Second COVID19 Vaccination Apolinar: 03/15 Family Medical History Significant Family History: No Pertinent Family Hx Review of Systems (CHC) Constitutional: No fever EENTM: No nose congestion Respiratory: No cough, No short of breath Gastrointestinal: No abdominal pain; diarrhea, hematemesis, heartburn; No melena; nausea, vomiting Genitourinary: No dysuria Reviewed Test Results Reviewed Test Results Lab Laboratory Tests Test 01/04/22 04:15 01/04/22 07:47 Range/Units Urine Color YELLOW Urine Clarity SL CLOUDY Urine pH 6.0 5-9 Urine Specific [place] >=1.030 1.016-1.022 Urine Protein 2+ H NEGATIVE Urine Glucose (UA) NEGATIVE NEGATIVE Urine Ketones 3+ H NEGATIVE Urine Nitrite NEGATIVE NEGATIVE Urine Bilirubin NEGATIVE NEGATIVE Urine Urobilinogen 0.2 < = 1.0 MG/DL Urine Leukocyte Esterase NEGATIVE NEGATIVE Urine RBC (Auto) NEGATIVE NEGATIVE Urine RBC 0-2 /HPF Urine WBC 5-10 H /HPF Urine Squamous Epithelial Cells 0-2 /HPF Urine Crystals NONE /LPF Urine Bacteria FEW H /HPF Urine Casts NONE /LPF Urine Mucus MODERATE H /LPF Urine Culture Indicated YES White Blood Count 14.3 H 4.3-11.0 10^3/uL Red Blood Count 3.96 3.80-5.11 10^6/uL Hemoglobin 11.0 L 11.5-16.0 g/dL Hematocrit 35 35-52 % Mean Corpuscular Volume 88 80-99 fL Mean Corpuscular Hemoglobin 28 25-34 pg Mean Corpuscular Hemoglobin Concent 32 32-36 g/dL Red Cell Distribution Width 13.2 10.0-14.5 % Platelet Count 235 130-400 10^3/uL Mean Platelet Volume 11.1 9.0-12.2 fL Immature Granulocyte % (Auto) 1 % Neutrophils (%) (Auto) 93 H 42-75 % Lymphocytes (%) (Auto) 4 L 12-44 % Monocytes (%) (Auto) 3 0-12 % Eosinophils (%) (Auto) 0 0-10 % Basophils (%) (Auto) 0 0-10 % Neutrophils # (Auto) 13.2 H 1.8-7.8 10^3/uL Lymphocytes # (Auto) 0.5 L 1.0-4.0 10^3/uL Monocytes # (Auto) 0.4 0.0-1.0 10^3/uL Eosinophils # (Auto) 0.0 0.0-0.3 10^3/uL Basophils # (Auto) 0.0 0.0-0.1 10^3/uL Immature Granulocyte # (Auto) 0.1 0.0-0.1 10^3/uL Neutrophils % (Manual) 95 % Lymphocytes % (Manual) 4 % Monocytes % (Manual) 1 % Blood Morphology Comment NORMAL Sodium Level 140 135-145 MMOL/L Potassium Level 3.4 L 3.6-5.0 MMOL/L Chloride Level 109 H 98-107 MMOL/L Carbon Dioxide Level 22 21-32 MMOL/L Anion Gap 9 5-14 MMOL/L Blood Urea Nitrogen 6 L 7-18 MG/DL Creatinine 0.62 0.60-1.30 MG/DL Estimat Glomerular Filtration Rate 125 BUN/Creatinine Ratio 10 Glucose Level 138 H 70-105 MG/DL Calcium Level 8.6 8.5-10.1 MG/DL Corrected Calcium 9.2 8.5-10.1 MG/DL Total Bilirubin 0.5 0.1-1.0 MG/DL Aspartate Amino Transf (AST/SGOT) 7 5-34 U/L Alanine Aminotransferase (ALT/SGPT) 8 0-55 U/L Alkaline Phosphatase 94 40-136 U/L Total Protein 6.5 6.4-8.2 GM/DL Albumin 3.3 3.2-4.5 GM/DL Physical Exam-([facility]) Physical Exam Vital Signs VS - Last 72 Hours, by Label 01/04/22 01/04/22 01/04/22 01/04/22 04:20 04:20 07:30 12:36 Temp 36.6 36.6 36.8 36.8 Pulse 129 129 113 112 Resp 18 18 16 18 B/P (MAP) 110/72 (85) 112/78 (89) Pulse Ox 97 97 99 O2 Delivery Room Air Room Air Room Air Room Air Capillary Refill : Less Than 3 Seconds General Appearance: WD/WN, no apparent distress Respiratory: lungs clear, normal breath sounds Cardiovascular: regular rate, rhythm, no murmur Gastrointestinal: other (gravid, fundus/uterus non-tender) Extremities: no pedal edema Neurologic/Psychiatric: alert, normal mood/affect Skin: normal color, warm/dry Short Stay Diagnosis Discharge Diagnosis-Short Stay Admission Diagnosis Nausea Vomiting Diarrhea Third trimester contractions Dehydration Final Discharge Diagnosis Possible listeriosis Nausea Vomiting Diarrhea contractions- resolved Dehydration- resolved Conclusion Plan Pt was able to tolerate liquid and some solid food and keep down oral antibiotic, she was discharged on empiric amoxicillin for possible afebrile listeriosis, blood cultures pending. Stool cultures order to eval for other causes, but no further diarrhea occurred inpatient so outpatient orders were written. After IVF, contractions resolved. Assessment/Plan Assessment/Plan Admission Status: Observation LIAM SMITH MD Jan 04, 2022 16:54
[2022-01-04] MEDS ORDERED: PROM25TA14 PO (16:59)
[2022-01-04] MEDS ORDERED: AMOX500C2 PO (16:59)
== END 2022-01-04 17:17 | disposition home or self-care (01) ==
LOC: WSo 04:00 → LDRP 04:01 → UNDOADMOB 04:17 → WSo 04:17 → SUATTDRO 09:09 → UNDODISOB 17:17 → EDSTATUS 01-05 17:51
PROVIDERS: ADMIT Family Medicine; ATTEND Family Medicine
DX: O60.03 Preterm labor without delivery, third trimester (principal); Z3A.30 30 weeks gestation of pregnancy; O99.283 Endocrine, nutritional and metabolic diseases complicating pregnancy, third trimester; E86.0 Dehydration; O21.9 Vomiting of pregnancy, unspecified
CPT/HCPCS: 36415; 80053; 81000; 85007; 85027; 87040; 87088; 96361; 96374; 96375; 96376; G0378

== ENCOUNTER 2022-01-06 08:30 | Outpatient (CLI) | payer BC, MEDICAID ==
[~2022-01-06] VITALS: Ht 162.6 cm; Wt 69.7 kg
[~2022-01-06 08:30] MED LIST changes: +AMOX500C2 PO; +PROM25TA14 PO
[2022-01-06 08:59] LABS: BILIRUBIN,URINE NEGATIVE (NEGATIVE); CLARITY,URINE SL CLOUDY; COLOR,URINE YELLOW; GLUCOSE, URINE (UA) NEGATIVE (NEGATIVE); KETONES,URINE NEGATIVE (NEGATIVE); LEUKOCYTE ESTERASE ,URINE TRACE (NEGATIVE); NITRITE,URINE NEGATIVE (NEGATIVE); PROTEIN,URINE NEGATIVE (NEGATIVE)
[2022-01-06 09:11] VITALS: BP 122/74
[2022-01-06 09:21] LABS: BACTERIA,URINE NEGATIVE /HPF
--- NOTE | 2022-01-07 07:57 | Physician Query-Final Dx ---
01/07/22 0757: Clinic Account Progress/Dx Physician Query: Please give diagnosis Please include # weeks gestation Date of Service Jan 06, 2022 at 08:30 LIAM ARCE MD 01/07/22 1554: Clinic Account Progress/Dx DIAGNOSIS: Diagnosis Abdominal pain in - pt concerned for contractions No contractions on monitor, cervix closed 29 weeks gestation ,AprJan 07, 2022 07:57 LIAM ARCE MD Jan 07, 2022 15:54
== END 2022-01-06 10:48 | disposition home or self-care (01) ==
LOC: WSo 08:30 → LDRP 08:30 → WSo 10:48
PROVIDERS: ATTEND Family Medicine
DX: O26.893 Other specified pregnancy related conditions, third trimester (principal); R10.9 Unspecified abdominal pain; Z3A.29 29 weeks gestation of pregnancy
CPT/HCPCS: 81000; 99213

== ENCOUNTER 2022-02-27 19:09 | Outpatient (CLI) | payer BC, MEDICAID ==
[~2022-02-27] VITALS: Ht 162.6 cm; Wt 74.5 kg
[2022-02-27] MEDS ORDERED: PREN-37 PO (19:46)
[2022-02-27 20:02] LABS: BILIRUBIN,URINE NEGATIVE (NEGATIVE); CLARITY,URINE CLOUDY; COLOR,URINE YELLOW; GLUCOSE, URINE (UA) NEGATIVE (NEGATIVE); KETONES,URINE TRACE (NEGATIVE); LEUKOCYTE ESTERASE ,URINE 2+ (NEGATIVE); NITRITE,URINE NEGATIVE (NEGATIVE); PROTEIN,URINE 2+ (NEGATIVE)
[2022-02-27 20:13] LABS: BACTERIA,URINE LARGE /HPF
[2022-02-27 20:14] LABS: SQUAMOUS EPITHELIAL CELL,UR 25-50 /HPF
[2022-02-27 20:18] LABS: WBC,URINE 50-100 /HPF
[2022-02-27 20:20] VITALS: BP 127/74
[2022-02-27 20:30] VITALS: BP 138/78
--- NOTE | 2022-03-01 09:28 | Physician Query-Final Dx ---
Clinic Account Progress/Dx Physician Query: Please give diagnosis Please include # weeks gestation Date of Service Feb 27, 2022 at 19:09 LEXY,AprMar 01, 2022 09:27
== END 2022-02-27 21:30 ==
LOC: LDRP 19:09 → WSo 19:09
PROVIDERS: ATTEND Family Medicine
DX: Z34.93 Encounter for supervision of normal pregnancy, unspecified, third trimester (principal); Z3A.38 38 weeks gestation of pregnancy
CPT/HCPCS: 81000; 87088; 99213

== ENCOUNTER 2022-03-11 18:30 | Inpatient (IN) | payer BC, MEDICAID ==
[~2022-03-11] VITALS: Ht 162.6 cm; Wt 74.8 kg
[~2022-03-11 18:30] MED LIST changes: +PREN-37 PO
--- OUTSIDE RECORDS SUMMARY | 2022-03-11 18:34 | XMS REPORT | Clinical Summary ---
Author Author [facility] Address Unknown Phone Unavailable Care Team Providers Care [employer] History Teacher Name Role Phone PCP Unavailable Allergies Not on File Medications Not on file Active Problems Not on file Social History Date Tobacco Use Types Packs/Day Years Used Smoking Tobacco: Never Assessed Sex Assigned at Date Recorded Not on file Last Filed Vital Signs Not on file Plan of Treatment Health Maintenance Due Date Last Done Comments COVID-19 Vaccine (#1) 1994 Varicella Vaccines (1 of 1995 2 - 2-dose childhood series) Hepatitis C Screening 01/18/2012 DTaP,Tdap,and Td Vaccines 2013 (1 - Tdap) MMR Vaccines-Adult 2013 Cervical Cancer Screening 2015 Influenza Vaccine (#1) 2021 HIB Vaccines Aged Out No longer eligible based on patient's age to complete this topic IPV Vaccines Aged Out No longer eligible based on patient's age to complete this topic Meningococcal Vaccine Aged Out No longer eligib le based on patient's age to complete this topic Pneumo-Vaccine: At Risk Aged Out No longer elig ible based on patient's age to 6-64 Yrs complete this topic Rotavirus Vaccines Aged Out No longer eligible based on patient's age to complete this topic Results Not on filefrom Last 3 Months
[2022-03-11 18:48] VITALS: BP 123/78
[2022-03-11 20:00] VITALS: BP 123/78
[2022-03-11] MEDS: LACTATED RINGERS 1,000 ML IV SCH (20:10)
[2022-03-11] MEDS ORDERED: TERBUTALINE INJ 1 MG/ML (BRETHINE) AMP SC PRN (20:45)
[2022-03-11] MEDS ORDERED: MINERAL OIL 30 ML UDC TOP PRN (20:45)
[2022-03-11 20:52] LABS: BILIRUBIN,URINE NEGATIVE (NEGATIVE); CLARITY,URINE SL CLOUDY; COLOR,URINE YELLOW; GLUCOSE, URINE (UA) NEGATIVE (NEGATIVE); KETONES,URINE 1+ (NEGATIVE); LEUKOCYTE ESTERASE ,URINE 1+ (NEGATIVE); NITRITE,URINE NEGATIVE (NEGATIVE); PROTEIN,URINE 1+ (NEGATIVE)
[2022-03-11 20:53] LABS: BASOPHILS % (AUTO) 0 % (0-10); EOSINOPHILS % (AUTO) 0 % (0-10); HEMATOCRIT 35 % (35-52); HEMOGLOBIN 10.7 g/dL (11.5-16.0); LYMPHOCYTES # (AUTO) 1.7 10^3/uL (1.0-4.0); LYMPHOCYTES % (AUTO) 15 % (12-44); MEAN CORPUSCULAR HEMOGLOBIN 24 pg (25-34); MEAN CORPUSCULAR HGB CONC 30 g/dL (32-36); MEAN CORPUSCULAR VOLUME 77 fL (80-99); MEAN PLATELET VOLUME 12.4 fL (9.0-12.2); MONOCYTES # (AUTO) 0.8 10^3/uL (0.0-1.0); MONOCYTES % (AUTO) 7 % (0-12); NEUTROPHILS # (AUTO) 9.2 10^3/uL (1.8-7.8); NEUTROPHILS % (AUTO) 78 % (42-75); PLATELET COUNT 247 10^3/uL (130-400); WHITE BLOOD COUNT 11.8 10^3/uL (4.3-11.0)
[2022-03-11 21:06] LABS: BACTERIA,URINE LARGE /HPF; SQUAMOUS EPITHELIAL CELL,UR >50 /HPF
[2022-03-11 22:20] VITALS: BP 127/77
[2022-03-11] MEDS: D5 LR IV SOLUTION 1,000 ML IV SCH (22:24)
[2022-03-12] VITALS (61 sets, daily range): BP systolic 102–172; BP diastolic 58–107
[2022-03-12] MEDS ORDERED: diphenhydrAMINE 50 MG/ML INJ (BENADRYL) ONE (03:37)
[2022-03-12] MEDS ORDERED: diphenhydrAMINE 50 MG/ML INJ (BENADRYL) IM ONE (03:45)
[2022-03-12] MEDS ORDERED: diphenhydrAMINE 50 MG/ML INJ (BENADRYL) IVP ONE (03:45)
[2022-03-12] MEDS ORDERED: BUTORPHANOL INJ 2 MG/ML (STADOL) VIAL ONE (04:30)
[2022-03-12] MEDS ORDERED: BUTORPHANOL INJ 2 MG/ML (STADOL) VIAL IV ONE (04:30)
[2022-03-12] MEDS: CATHETER FLUSH 10 ML SYR IV SCH (04:57)
[2022-03-12] MEDS ORDERED: fentaNYL 2 mcg/ml BUPIVA 0.125 100 ML ONE ×2 (07:55→15:55)
[2022-03-12] MEDS ORDERED: fentaNYL INJ 100 MCG/2 ML AMP ONE ×3 (08:59→19:01)
--- NOTE | 2022-03-12 11:19 | History & Physical-OB ---
OB - Chief Complaint & HPI Date/Time Date of Admission: Date of Admission: Mar 11, 2022 at 18:30 Date seen by a Provider: Mar 12, 2022 Time Seen by a Provider: 10:30 Chief Complaint/History OB-Reason for Admission/Chief: Induction of Labor Hx : 1 Expected Date of Delivery: Mar 11, 2022 Gestational Age in Weeks: 40 Gestational Age in Days: 0 History of Labs O+, Ab neg, Rub Imm HIV/RPR/HepB/C NR Normal 1 hr GTT GBS neg Allergies and Home Medications Allergies Coded Allergies: codeine (Verified Allergy, Unknown, 09/10/18) Patient Home Medication List Home Medication List Reviewed: Yes Vit/Iron Fumarate/FA ( Tablet) 27 Mg Iron-800 Mcg Tablet, 1 EACH PO DAILY, (Reported) Entered as Reported by: MEAGAN CHEUNG on 02/27/221945 OB - History Hx of Present Care: Yes Ultrasounds: Normal mid trimester US Abnormal Ultrasound Findings: 35 week US with Breech presentation, resolved at [facility] appt @ 38 Obstetrical Complications: None Medical Complications: None Obstetrical History Hx : 1 Number of Living Children: 0 Patient Past Medical History None Social History/Family History Alcohol Use: Denies Use Recreational Drug Use: No Smoking Cessation: Never smoker 2nd Hand Smoke Exposure: No Immunizations Influenza Vaccine Up-to-Date: Yes; Up-to-Date Second COVID19 Vaccination: 03/15 Rubella: immune RPR/VDRL: Negative GBS Status: Negative HBsAG: Negative OB - Admission Exam Physical Exam Vitals: Vital Signs 03/12/22 03/12/22 08:48 08:55 Temp 36.7 Pulse 109 Resp 20 B/P (MAP) 140/71 (94) Pulse Ox 98 O2 Delivery Room Air HEENT: NCAT Heart: Rhythm Normal Lungs: Clear Abdomen: Gravid Cervical Dilatation: 4cm Effacement: 100% Station: -1 Membranes: Ruptured Amniotic Fluid: Clear Heart Rate: 130's Accelerations: Accelerations Present Decelerations: No Decelerations Contractions on Admission: < 5 Minutes Apart Intensity: Moderate Haque Scoring Tool (Modified) Dilation (cm): 1-2cm (1) Effacement (%): 80-100% (3) Descent/Station: -1,0 (2) Cervix Consistency: Medium(1) Cervix Position: Middle/Mid-Position (1) Subtract 1 point for: Nulliparity (-1) Labs Laboratory Tests Test 03/11/22 18:20 03/11/22 19:57 Range/Units Urine Color YELLOW Urine Clarity SL CLOUDY Urine pH 6.0 5-9 Urine Specific [place] >=1.030 1.016-1.022 Urine Protein 1+ H NEGATIVE Urine Glucose (UA) NEGATIVE NEGATIVE Urine Ketones 1+ H NEGATIVE Urine Nitrite NEGATIVE NEGATIVE Urine Bilirubin NEGATIVE NEGATIVE Urine Urobilinogen 0.2 < = 1.0 MG/DL Urine Leukocyte Esterase 1+ H NEGATIVE Urine RBC (Auto) NEGATIVE NEGATIVE Urine RBC NONE /HPF Urine WBC 10-25 H /HPF Urine Squamous Epithelial Cells >50 H /HPF Urine Crystals NONE /LPF Urine Bacteria LARGE H /HPF Urine Casts NONE /LPF Urine Mucus MODERATE H /LPF Urine Culture Indicated YES White Blood Count 11.8 H 4.3-11.0 10^3/uL Red Blood Count 4.55 3.80-5.11 10^6/uL Hemoglobin 10.7 L 11.5-16.0 g/dL Hematocrit 35 35-52 % Mean Corpuscular Volume 77 L 80-99 fL Mean Corpuscular Hemoglobin 24 L 25-34 pg Mean Corpuscular Hemoglobin Concent 30 L 32-36 g/dL Red Cell Distribution Width 16.3 H 10.0-14.5 % Platelet Count 247 130-400 10^3/uL Mean Platelet Volume 12.4 H 9.0-12.2 fL Immature Granulocyte % (Auto) 0 % Neutrophils (%) (Auto) 78 H 42-75 % Lymphocytes (%) (Auto) 15 12-44 % Monocytes (%) (Auto) 7 0-12 % Eosinophils (%) (Auto) 0 0-10 % Basophils (%) (Auto) 0 0-10 % Neutrophils # (Auto) 9.2 H 1.8-7.8 10^3/uL Lymphocytes # (Auto) 1.7 1.0-4.0 10^3/uL Monocytes # (Auto) 0.8 0.0-1.0 10^3/uL Eosinophils # (Auto) 0.0 0.0-0.3 10^3/uL Basophils # (Auto) 0.0 0.0-0.1 10^3/uL Immature Granulocyte # (Auto) 0.0 0.0-0.1 10^3/uL OB - Assessment/Plan/Diagnosis Assessment Assessment: induction of labor Admission Dx Third Trimester 40 week gestation Admission Status: Inpatient Order (span 2 midnights) Reason for Inpatient Admission: IOL Plan Other Plan 27 yo G1 @40.1 wga here for elective IOL Plan - Expectant management - GBS neg - Desires epidural SUSHMA QUINTANILLA MD Mar 12, 2022 11:19
--- NOTE | 2022-03-12 12:51 | Labor Progress Note ---
Labor Progress Note Labor Progress Note Date Seen by Provider: Mar 12, 2022 Time Seen by Provider: 12:44 Subjective: Pt denies complaints. States that she has been feeling more pressure. Objective: / Assessment/Plan: Maru Bansal is a (27 /Para 1 / ,Gestational Age (wks)40.1 here for elective IOL CEFM/TOCO Anesthesia: Epidural Anticipate vaginal delivery. Changed position to High fowlers to help with station GBS neg Vitals - Labs Vital Signs - I&O Vital Signs Date Time Temp Pulse Resp B/P (MAP) Pulse Ox O2 Delivery O2 Flow Rate FiO2 03/12/22 11:45 134 20 133/71 (91) 98 Room Air 03/12/22 11:30 37.3 111 20 126/64 (84) 98 Room Air 03/12/22 11:15 88 20 116/63 (80) 98 Room Air 03/12/22 11:05 98 20 118/61 (80) 98 Room Air 03/12/22 10:45 90 20 124/67 (86) 98 Room Air 03/12/22 10:30 77 20 124/69 (87) 98 Room Air 03/12/22 10:15 88 20 135/64 (87) 98 Room Air 03/12/22 10:00 129 20 128/58 (81) 98 Room Air 03/12/22 09:45 78 20 117/70 (86) 98 Room Air 03/12/22 09:30 78 20 114/68 (83) 98 Room Air 03/12/22 09:27 82 20 120/67 (84) 98 Room Air 03/12/22 09:23 78 20 121/68 (85) 98 Room Air 03/12/22 09:20 81 20 120/63 (82) 98 Room Air 03/12/22 09:15 86 20 131/67 (88) 98 Room Air 03/12/22 09:12 88 20 128/65 (86) 98 Room Air 03/12/22 09:08 100 20 127/66 (86) 98 Room Air 03/12/22 09:04 112 20 136/67 (90) 98 Room Air 03/12/22 09:00 116 20 147/72 (97) 98 Room Air 03/12/22 08:55 109 20 140/71 (94) 98 Room Air 03/12/22 08:52 127 20 147/81 (103) 98 Room Air 03/12/22 08:48 36.7 122 20 142/80 (100) 97 Room Air 03/12/22 08:44 129 20 145/81 (102) 98 Room Air 03/12/22 08:40 139 20 146/95 (112) 98 Room Air 03/12/22 08:35 134 20 143/91 (108) 98 Room Air 03/12/22 07:55 36.8 115 20 148/88 (108) 03/12/22 01:00 96 18 139/93 (108) 03/11/22 22:20 95 18 127/77 (94) 03/11/22 20:00 36.3 122 18 98 Room Air 03/11/22 18:48 36.3 122 18 123/78 (93) Labs Laboratory Tests 03/11/22 18:20: Urine Color YELLOW, Urine Clarity SL CLOUDY, Urine pH 6.0, Urine Specific [place] >=1.030, Urine Protein 1+H, Urine Glucose (UA) NEGATIVE, Urine Ketones 1+H, Urine Nitrite NEGATIVE, Urine Bilirubin NEGATIVE, Urine Urobilinogen 0.2, Urine Leukocyte Esterase 1+H, Urine RBC (Auto) NEGATIVE, Urine RBC NONE, Urine WBC 10-25H, Urine Squamous Epithelial Cells >50H, Urine Crystals NONE, Urine Bacteria LARGEH, Urine Casts NONE, Urine Mucus MODERATEH, Urine Culture Indicated YES 03/11/22 19:57: White Blood Count 11.8H, Red Blood Count 4.55, Hemoglobin 10.7L, Hematocrit 35, Mean Corpuscular Volume 77L, Mean Corpuscular Hemoglobin 24L, Mean Corpuscular Hemoglobin Concent 30L, Red Cell Distribution Width 16.3H, Platelet Count 247, Mean Platelet Volume 12.4H, Immature Granulocyte % (Auto) 0, Neutrophils (%) (Auto) 78H, Lymphocytes (%) (Auto) 15, Monocytes (%) (Auto) 7, Eosinophils (%) (Auto) 0, Basophils (%) (Auto) 0, Neutrophils # (Auto) 9.2H, Lymphocytes # (Auto) 1.7, Monocytes # (Auto) 0.8, Eosinophils # (Auto) 0.0, Basophils # (Auto) 0.0, Immature Granulocyte # (Auto) 0.0 SUSHMA QUINTANILLA MD Mar 12, 2022 12:51
[2022-03-12] MEDS: D5 LR IV SOLUTION 1,000 ML IV SCH (14:08)
[2022-03-12] MEDS: OXYTOCIN PRE-MIX DRIP 500 ML IV SCH ×2 (14:29→20:00)
[2022-03-12] MEDS ORDERED: ceFAZolin INJECTION 2,000 MG in NS (IVPB) 50 ML IV NR (17:30)
[2022-03-12] MEDS ORDERED: AZITHROMYCIN INJECTION 500 MG in NS (IVPB) 250 ML IV NR (17:30)
--- NOTE | 2022-03-12 17:36 | Labor Progress Note ---
Labor Progress Note Labor Progress Note Date Seen by Provider: Mar 12, 2022 Time Seen by Provider: 17:20 Subjective: Pt pushing for 75 mins. States that she is getting tired. Pushing was tried in multiple positions. Objective: Complete/100/0 capute present Assessment/Plan: Maru Bansal is a (27 /Para 1 / ,Gestational Age (wks)40.1 wga here for IOL CEFM/TOCO Augmentation with Pitocin, pitocin stopped with bradycardia Maternal and tachycardia, + caput, not making progress for the last 30 mins Now having bradycardia with contractions Notified OB client relation specialist Dr Arnold and consult made for primary c/section for distress and failure to progress Vitals - Labs Vital Signs - I&O Vital Signs Date Time Temp Pulse Resp B/P (MAP) Pulse Ox O2 Delivery O2 Flow Rate FiO2 03/12/22 15:00 107 20 123/63 (83) 97 Room Air 03/12/22 14:45 94 20 116/59 (78) 97 Room Air 03/12/22 14:35 105 20 121/59 (79) 97 Room Air 03/12/22 14:20 37.0 99 20 117/68 (84) 95 Room Air 03/12/22 14:15 111 20 118/72 (87) 96 Room Air 03/12/22 14:00 133 20 130/79 (96) 97 Room Air 03/12/22 13:45 96 20 118/62 (80) 96 Room Air 03/12/22 13:30 106 20 136/63 (87) 97 Room Air 03/12/22 13:15 113 20 138/65 (89) 98 Room Air 03/12/22 13:00 114 20 146/69 (94) 97 Room Air 03/12/22 12:45 142 20 147/72 (97) 97 Room Air 03/12/22 12:30 116 20 150/73 (98) 94 Room Air 03/12/22 12:15 80 20 130/64 (86) 94 Room Air 03/12/22 12:00 37.3 86 20 126/71 (89) 98 Room Air 03/12/22 11:45 134 20 133/71 (91) 98 Room Air 03/12/22 11:30 37.3 111 20 126/64 (84) 98 Room Air 03/12/22 11:15 88 20 116/63 (80) 98 Room Air 03/12/22 11:05 98 20 118/61 (80) 98 Room Air 03/12/22 10:45 90 20 124/67 (86) 98 Room Air 03/12/22 10:30 77 20 124/69 (87) 98 Room Air 03/12/22 10:15 88 20 135/64 (87) 98 Room Air 03/12/22 10:00 129 20 128/58 (81) 98 Room Air 03/12/22 09:45 78 20 117/70 (86) 98 Room Air 03/12/22 09:30 78 20 114/68 (83) 98 Room Air 03/12/22 09:27 82 20 120/67 (84) 98 Room Air 03/12/22 09:23 78 20 121/68 (85) 98 Room Air 03/12/22 09:20 81 20 120/63 (82) 98 Room Air 03/12/22 09:15 86 20 131/67 (88) 98 Room Air 03/12/22 09:12 88 20 128/65 (86) 98 Room Air 03/12/22 09:08 100 20 127/66 (86) 98 Room Air 03/12/22 09:04 112 20 136/67 (90) 98 Room Air 03/12/22 09:00 116 20 147/72 (97) 98 Room Air 03/12/22 08:55 109 20 140/71 (94) 98 Room Air 03/12/22 08:52 127 20 147/81 (103) 98 Room Air 03/12/22 08:48 36.7 122 20 142/80 (100) 97 Room Air 03/12/22 08:44 129 20 145/81 (102) 98 Room Air 03/12/22 08:40 139 20 146/95 (112) 98 Room Air 03/12/22 08:35 134 20 143/91 (108) 98 Room Air 03/12/22 07:55 36.8 115 20 148/88 (108) 03/12/22 01:00 96 18 139/93 (108) 03/11/22 22:20 95 18 127/77 (94) 03/11/22 20:00 36.3 122 18 98 Room Air 03/11/22 18:48 36.3 122 18 123/78 (93) Labs Laboratory Tests 03/11/22 18:20: Urine Color YELLOW, Urine Clarity SL CLOUDY, Urine pH 6.0, Urine Specific [place] >=1.030, Urine Protein 1+H, Urine Glucose (UA) NEGATIVE, Urine Ketones 1+H, Urine Nitrite NEGATIVE, Urine Bilirubin NEGATIVE, Urine Urobilinogen 0.2, Urine Leukocyte Esterase 1+H, Urine RBC (Auto) NEGATIVE, Urine RBC NONE, Urine WBC 10-25H, Urine Squamous Epithelial Cells >50H, Urine Crystals NONE, Urine Bacteria LARGEH, Urine Casts NONE, Urine Mucus MODERATEH, Urine Culture Indicated YES 03/11/22 19:57: White Blood Count 11.8H, Red Blood Count 4.55, Hemoglobin 10.7L, Hematocrit 35, Mean Corpuscular Volume 77L, Mean Corpuscular Hemoglobin 24L, Mean Corpuscular Hemoglobin Concent 30L, Red Cell Distribution Width 16.3H, Platelet Count 247, Mean Platelet Volume 12.4H, Immature Granulocyte % (Auto) 0, Neutrophils (%) (Auto) 78H, Lymphocytes (%) (Auto) 15, Monocytes (%) (Auto) 7, Eosinophils (%) (Auto) 0, Basophils (%) (Auto) 0, Neutrophils # (Auto) 9.2H, Lymphocytes # (Auto) 1.7, Monocytes # (Auto) 0.8, Eosinophils # (Auto) 0.0, Basophils # (Auto) 0.0, Immature Granulocyte # (Auto) 0.0 SUSHMA QUINTANILLA MD Mar 12, 2022 17:36
[2022-03-12] MEDS: LACTATED RINGERS 1,000 ML IV SCH (17:43)
[2022-03-12] MEDS ORDERED: LACTATED RINGERS 1,000 ML IV PRN ×2 (17:45)
[2022-03-12] MEDS ORDERED: METOCLOPRAMIDE INJ 10 MG/2 ML (REGLAN) IV ONE (17:45)
[2022-03-12] MEDS ORDERED: CITRIC ACID/SOB CIT (BICITRA) 30 ML UDC PO ONE (17:45)
[2022-03-12] MEDS ORDERED: LIDOCAINE PF 2% 5 ML (XYLOCAINE) VIAL ONE ×2 (17:53→18:51)
[2022-03-12] MEDS ORDERED: KETAMINE 50 MG/5 ML SYRINGE ONE (18:29)
[2022-03-12] MEDS ORDERED: ONDANSETRON 4 MG/2 ML (SDV) Z0FRAN ONE (18:51)
[2022-03-12] MEDS ORDERED: NALOXONE 0.4 MG/ML 1 ML (NARCAN) VIAL IV PRN (19:00)
[2022-03-12] MEDS ORDERED: proPOfol 200 MG/20 ML (DIPRIVAN) VIAL IV ONE (19:07)
[2022-03-12] MEDS ORDERED: MEPERIDINE (DEMEROL) INJ 50 MG/ML ONE (19:31)
[2022-03-12] MEDS ORDERED: KETOROLAC 30 MG/ML VIAL ONE (19:55)
[2022-03-12] MEDS ORDERED: OXYTOCIN PRE-MIX DRIP 500 ML IV ONE (19:55)
[2022-03-12] MEDS ORDERED: ONDANSETRON 4 MG/2 ML (SDV) Z0FRAN IVP PRN (20:00)
[2022-03-12] MEDS: KETOROLAC 30 MG/ML VIAL IV SCH (20:02)
--- NOTE | 2022-03-12 20:02 | Operative Report ---
Operative Report Date of Procedure/Surgery Mar 12, 2022 Surgeon (s) LONG CARR DO Business Development (s): Emilee Bro Post-Operative Diagnosis Intolerance of Labor Procedure Performed Section Description of Procedure Anesthesia Type: EPI (Ibis Horan CRNA) Estimated blood loss (mL): 600 ML, Urine Output 100 ML, Crystalloid 900 ML Specimen(s) collected/removed Placenta to Pathology Description of the Procedure The patient was counseled and consented verbally and in writing prior to surgery. She was taken to the OR and placed in supine position. She underwent a Betadine vaginal prep by me and an abdominal prep as well by OR nurse. A jones catheter was placed in the OR. A right hip role was placed along with SCDs. A time out was performed, the patient was then draped and a surgical level was confirmed by Anesthesia. A Pfannenstiel skin incision was performed at 1832 and sharp dissection was carried down to the level of the fascia that was nicked on both sided of the midline. The fascial incision was extended laterally and upwar ds sharply bilaterally. The fascia was taken upwards and downwards sharply. The peritoneal cavity was entered with care given fact the bladder was up against the peritoneal surface. After safe entry into the peritoneal cavity, the peritoneal incision was extended laterally both bluntly and with cautery, being careful again to avoid the bladder. A bladder blade was inserted and low transverse uterine incision was made sharply and extended laterally bluntly. The head was elevated out of the pelvis and delivered through the uterine incision, along with the rest of the without need for fundal pressure at 1845. The cord was clamped x 2 after 15 seconds, oral suction performed on the abdomen. The cord was cut and the handed to the pediatric provider. Cord blood was obtained. IV Pitocin rapid infusion was started. The placenta delivered spontaneously. The uterus was exteriorized and wrapped with a moist laparotomy sponge. There was noted to be 3 cm bilateral lateral extensions of the transverse uterine incision that were not bleeding significantly. The extensions were reapproximated easily with two layers of 0-Vicryl with good hemostasis. The uterine incision was likewise closed with two layers of 0- Vicryl, the first a running locking and the second a running layer. A couple of additional box stitches of 0-Vicryl in the center of the incision were required for hemostasis. The incision was noted to be dry. the posterior cul-de-sac was irrigated and suctioned. The uterine incision was again inspected and noted to be dry. The uterus and adnexa were allowed to fall back into the pelvis. Peritoneal edges and muscle bellies were dry. The uterine incision was inspected one last time in its entirety and noted to be dry. The fascia was closed with a single running 1-Vicryl. The subcutaneous fat was irrigated and no bleeding noted. The skin was closed with running subcuticular 4-0 Monocryl followed by steri-strips and a sterile dressing. All sponge, needle and instrument counts were correct at the end of the case. The patient was transferred to the recovery room in good condition. Findings of the Procedure Patient with recurrent deep variables, at times down to 60s. Cervix exam by me prior to going to OR was C/C-3. Normal adnexa bilaterally. Delivery was productive of viable female infant born at 1845 hours with 1/5/10 of 4/7/9. Normal FHR prior to abdominal prep. head transverse in OR. Sangita-operative Antibiotics: Ancef 2 gm IV, Zithromax 500 mg IV. Allergies and Home Medications Allergies Coded Allergies: codeine (Verified Allergy, Unknown, 09/10/18) Patient Home Medication List Home Medication List Reviewed: No Vit/Iron Fumarate/FA ( Tablet) 27 Mg Iron-800 Mcg Tablet, 1 EACH PO DAILY, (Reported) Entered as Reported by: MEAGAN CHEUNG on 02/27/221945 LONG CARR DO Mar 12, 2022 20:02
[2022-03-12] MEDS ORDERED: CATHETER FLUSH 10 ML SYR IV SCH ×2 (22:00)
[2022-03-12] MEDS: DOCUSATE SODIUM 100 MG (COLACE) CAP PO SCH (22:38)
[2022-03-12] MEDS: ACETAMINOPHEN 500 MG TAB (TYLENOL) PO SCH (22:38)
[2022-03-13] VITALS: BP 117/67
[2022-03-13] MEDS: OXYTOCIN PRE-MIX DRIP 500 ML IV SCH ×2 (00:50→17:19)
[2022-03-13] MEDS: KETOROLAC 30 MG/ML VIAL IV SCH ×2 (02:45→09:24)
[2022-03-13 03:40] VITALS: BP 108/61
[2022-03-13] MEDS: ACETAMINOPHEN 500 MG TAB (TYLENOL) PO SCH (03:40)
[2022-03-13 05:33] LABS: BASOPHILS % (AUTO) 0 % (0-10); EOSINOPHILS % (AUTO) 0 % (0-10); HEMATOCRIT 21 % (35-52); LYMPHOCYTES % (AUTO) 5 % (12-44); MEAN CORPUSCULAR HEMOGLOBIN 24 pg (25-34); MEAN CORPUSCULAR HGB CONC 30 g/dL (32-36); MEAN CORPUSCULAR VOLUME 79 fL (80-99); MEAN PLATELET VOLUME 12.3 fL (9.0-12.2); MONOCYTES % (AUTO) 4 % (0-12); NEUTROPHILS % (AUTO) 90 % (42-75); PLATELET COUNT 199 10^3/uL (130-400); WHITE BLOOD COUNT 22.7 10^3/uL (4.3-11.0)
[2022-03-13 05:34] LABS: EOSINOPHILS # (AUTO) 0.1 10^3/uL (0.0-0.3); LYMPHOCYTES # (AUTO) 1.1 10^3/uL (1.0-4.0); NEUTROPHILS # (AUTO) 20.4 10^3/uL (1.8-7.8)
[2022-03-13 05:43] LABS: HEMOGLOBIN 6.2 g/dL (11.5-16.0)
--- NOTE | 2022-03-13 09:21 | Progress Note ---
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 She has remained afebrile post-op. HCT down to 21 this AM, patient asymptomatic, ambulating well, denies heavy bleeding, pain controlled. WBC this AM 22.7K. No clinical evidence of infection at this time Abdomen SNT, uterus firm U-6 cm and non-tender. Incision clean and dry without erythema Normal lochia no calf pain Final Diagnosis #1 Post Section -Doing well overall -No clinical evidence of infection. Will repeat CBC today at noon and tomorrow AM to check WBC trend #2 Post-op Anemia, not symptomatic -Bid Fe -Checking CBC at noon and tomorrow AM as stated -Discussed with patient recommendation to take supplemental Fe for 30 days to help with fatigue sx caused by anemia -Routine post-op care otherwise. LONG CARR DO Mar 13, 2022 09:21
[2022-03-13] MEDS: DOCUSATE SODIUM 100 MG (COLACE) CAP PO SCH ×2 (09:22→20:43)
[2022-03-13] MEDS: ACETAMINOPHEN 325 MG TABLET PO SCH ×3 (09:23→22:25)
[2022-03-13] MEDS: FERROUS SULF 325 MG (IRON) TAB PO SCH ×2 (09:23→20:43)
[2022-03-13 09:30] VITALS: BP 118/59
[2022-03-13] MEDS: IBUPROFEN 600 MG (MOTRIN) TAB PO SCH ×3 (09:50→22:24)
[2022-03-13 12:20] VITALS: BP 123/63
[2022-03-13 12:36] LABS: BASOPHILS % (AUTO) 0 % (0-10); EOSINOPHILS % (AUTO) 0 % (0-10); LYMPHOCYTES # (AUTO) 1.9 10^3/uL (1.0-4.0); LYMPHOCYTES % (AUTO) 8 % (12-44); MEAN CORPUSCULAR HEMOGLOBIN 24 pg (25-34); MEAN CORPUSCULAR HGB CONC 31 g/dL (32-36); MEAN CORPUSCULAR VOLUME 79 fL (80-99); MEAN PLATELET VOLUME 12.6 fL (9.0-12.2); MONOCYTES # (AUTO) 1.9 10^3/uL (0.0-1.0); MONOCYTES % (AUTO) 9 % (0-12); NEUTROPHILS # (AUTO) 18.4 10^3/uL (1.8-7.8); NEUTROPHILS % (AUTO) 82 % (42-75); PLATELET COUNT 212 10^3/uL (130-400); WHITE BLOOD COUNT 22.3 10^3/uL (4.3-11.0)
[2022-03-13 12:44] LABS: HEMATOCRIT 19 % (35-52); HEMOGLOBIN 5.9 g/dL (11.5-16.0)
--- NOTE | 2022-03-13 12:52 | Anesthesia-Regional Post-Op ---
Regional Patient Condition Mental Status: Alert, Oriented x3 Circulation: Same as Pre-Op Headache: Absent Sensation: Full Recovery Motor Block: Absent Post Op Complications Complications None Follow Up Care/Instructions Patient Instructions None needed. Anesthesia/Patient Condition Patient is doing well, no complaints, stable vital signs, no apparent adverse anesthesia problems. No complications reported per nursing. TATUM AVILES CRNA Mar 13, 2022 12:52
[2022-03-13 13:28] LABS: ANISOCYTOSIS SLIGHT; BAND NEUTROPHILS 3 %; BASOPHILS % (MANUAL) 0 %; EOSINOPHILS % (MANUAL) 0 %; LYMPHOCYTES % (MANUAL) 7 %; MICROCYTOSIS SLIGHT; MONOCYTES % (MANUAL) 3 %; NEUTROPHILS % (MANUAL) 87 %
[2022-03-13] MEDS ORDERED: IRON SUCROSE 200 MG/10 ML (VENOFER) VIAL IV NR (14:00)
[2022-03-13] MEDS: CATHETER FLUSH 10 ML SYR IV SCH ×2 (14:00→17:19)
[2022-03-13 15:30] VITALS: BP 120/74
[2022-03-13 19:51] VITALS: BP 119/61
[2022-03-13] MEDS ORDERED: IRON SUCROSE 200 MG/10 ML (VENOFER) VIAL IV ONE (20:34)
[2022-03-13] MEDS ORDERED: IBUPROFEN 600 MG (MOTRIN) TAB PO SCH (21:00)
[2022-03-14] VITALS (7 sets, daily range): BP systolic 108–126; BP diastolic 55–76
[2022-03-14] MEDS: ACETAMINOPHEN 325 MG TABLET PO SCH ×4 (03:57→23:05)
[2022-03-14] MEDS: IBUPROFEN 600 MG (MOTRIN) TAB PO SCH ×4 (03:58→23:06)
[2022-03-14 06:06] LABS: BASOPHILS % (AUTO) 0 % (0-10); EOSINOPHILS % (AUTO) 0 % (0-10); LYMPHOCYTES # (AUTO) 1.9 10^3/uL (1.0-4.0); LYMPHOCYTES % (AUTO) 11 % (12-44); MEAN CORPUSCULAR HEMOGLOBIN 24 pg (25-34); MEAN CORPUSCULAR HGB CONC 31 g/dL (32-36); MEAN CORPUSCULAR VOLUME 79 fL (80-99); MEAN PLATELET VOLUME 11.8 fL (9.0-12.2); MONOCYTES # (AUTO) 1.2 10^3/uL (0.0-1.0); MONOCYTES % (AUTO) 7 % (0-12); NEUTROPHILS # (AUTO) 13.4 10^3/uL (1.8-7.8); NEUTROPHILS % (AUTO) 80 % (42-75); PLATELET COUNT 162 10^3/uL (130-400); WHITE BLOOD COUNT 16.8 10^3/uL (4.3-11.0)
[2022-03-14 06:13] LABS: HEMOGLOBIN 4.7 g/dL (11.5-16.0)
[2022-03-14 06:14] LABS: HEMATOCRIT 15 % (35-52)
[2022-03-14 06:45] LABS: ANISOCYTOSIS SLIGHT; EOSINOPHILS % (MANUAL) 1 %; LYMPHOCYTES % (MANUAL) 6 %; MONOCYTES % (MANUAL) 4 %; NEUTROPHILS % (MANUAL) 89 %
[2022-03-14] MEDS ORDERED: NS IV 500 ML 500 ML IV SCH (07:30)
[2022-03-14] MEDS: FERROUS SULF 325 MG (IRON) TAB PO SCH ×2 (09:46→17:29)
[2022-03-14] MEDS: DOCUSATE SODIUM 100 MG (COLACE) CAP PO SCH ×2 (09:46→21:31)
--- NOTE | 2022-03-14 10:10 | Progress Note ---
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 HCT continues to drop over last couple of days. Pre-op HCt 35%, yesterday on POD #1 HCT was 21% at 0600 and 19% at 1200 hours. HCT this AM 15 and patient now reports being symptomatic, with complaints of being lightheaded, dizzy with headache. Pulse in low 100s at rest majority of time. There is no clinical evidence of internal abdominal bleeding. Her abdomen is soft, non-rigid, non-tender. The uterus is 6 cm below umbilicus and firm, she has scant lochia. A bedside US by me at 0945 reveals no large fluid collection in the abdomen in front or behind the uterus. On US there is only a 1 x 2.5 cm small fluid collection in the posterior collection which could easily represent normal post-op finding vs. small collection of blood. Again, no clinical evidence active or large intra-abdominal bleed. WBC has dropped from 22K yesterday to 16.8 today, with no clinical evidence of infection as well. The patient is to get transfused 1 unit PRBC and will get CBC 4 hours after transfusion and again tomorrow AM. Patient's regular provider, Dr. Kapadia, has been informed by me of all these findings. Anemia can be explained due to patient being dehydrated prior to surgery as well as under-estimation of blood loss at time of surgery. O: VSS/AF Ux firm U-6 and non-tender incision intact and without erythema or drainage normal lochia No calf pain A/P: # Post-op Anemia due to blood loss, symptomatic -Transfuse 1 unit PRBC -Check CBC 4 hours post transfusion and again tomorrow AM -Patient understands condition and no questions or concerns voiced. RN in room entire time of patient encounter. Final Diagnosis #1 State, after Section #2 Post-op Anemia, due to blood loss BRUNO,NATHAN Mar 14, 2022 10:10
[2022-03-14] MEDS ORDERED: NS IV 500 ML 500 ML ONE (10:20)
--- NOTE | 2022-03-14 11:06 | Short Stay Summary ---
Discharge Summary Hospital Course Was the Problem List Reviewed?: Yes Problems/Dx: (1) Status: Resolved Qualifiers: Qualified Codes: Z3A.40 - 40 weeks gestation of Final Diagnosis: 40 weeks gestation of Hospital Course Date of Admission: Mar 11, 2022 at 18:30 Admission Diagnosis : Family Physician/Provider: [facility] Date of Discharge: 03/14/22 Discharge Diagnosis: [ 40 weeks gestation, Delivery] Hospital Course: [Patient was admitted 03/12/[address] Kapadia for elective induction of labor. Subsequently underwent Section for intolerance of labor, delivered on 03/12/22 a viable female with 4/7/9. Post-operatively, the patient had anemia due to surgical blood loss. HCT on morning of POD #1 was 21% then 19 percent later in the day, patient asymptomatic. HCT critically low at 15% the morning of POD #2 and patient now symptomatic. She received 1 unit PRBC in addition to supplemental oral Fe. Abdominal bedside US by me revealed no large fluid collection in the anterior or posterior cul-de-sac or abdomen, a small 1 x 2.5 cm fluid pocket in posterior cul-de-sac only. Patient with no clinical evidence of infection or intra-abdominal bleeding. Otherwise did very well from surgical standpoint. Will follow up with OB provider in 1 week after discharge from hospital for incision check and then 6 weeks post-op with Dr. Kapadia for visit. ] Labs and Pending Lab Test: Laboratory Tests 03/13/22 12:05: White Blood Count 22.3H, Red Blood Count 2.43L, Hemoglobin 5.9*L, Hematocrit 19*L, Mean Corpuscular Volume 79L, Mean Corpuscular Hemoglobin 24L, Mean Corpusc ular Hemoglobin Concent 31L, Red Cell Distribution Width 16.7H, Platelet Count 212, Mean Platelet Volume 12.6H, Immature Granulocyte % (Auto) 1, Neutrophils (%) (Auto) 82H, Lymphocytes (%) (Auto) 8L, Monocytes (%) (Auto) 9, Eosinophils (%) (Auto) 0, Basophils (%) (Auto) 0, Neutrophils # (Auto) 18.4H, Lymphocytes # (Auto) 1.9, Monocytes # (Auto) 1.9H, Eosinophils # (Auto) 0.0, Basophils # (Auto) 0.0, Immature Granulocyte # (Auto) 0.1, Neutrophils % (Manual) 87, Lymphocytes % (Manual) 7, Monocytes % (Manual) 3, Eosinophils % (Manual) 0, Basophils % (Manual) 0, Band Neutrophils 3, Anisocytosis SLIGHT, Microcytosis SLIGHT 03/14/22 05:45: White Blood Count 16.8H, Red Blood Count 1.94L, Hemoglobin 4.7#*L, Hematocrit 15*L, Mean Corpuscular Volume 79L, Mean Corpuscular Hemoglobin 24L, Mean Corpuscular Hemoglobin Concent 31L, Red Cell Distribution Width 16.9H, Platelet Count 162, Mean Platelet Volume 11.8, Immature Granulocyte % (Auto) 1, Neutrophils (%) (Auto) 80H, Lymphocytes (%) (Auto) 11L, Monocytes (%) (Auto) 7, Eosinophils (%) (Auto) 0, Basophils (%) (Auto) 0, Neutrophils # (Auto) 13.4H, Lymphocytes # (Auto) 1.9, Monocytes # (Auto) 1.2H, Eosinophils # (Auto) 0.0, Basophils # (Auto) 0.0, Immature Granulocyte # (Auto) 0.2H, Neutrophils % ( Manual) 89, Lymphocytes % (Manual) 6, Monocytes % (Manual) 4, Eosinophils % (Manual) 1, Anisocytosis SLIGHT Microbiology 03/11/22 Urine Culture - Final, Complete See Comments Home Meds Active Reported Tablet ( Vit/Iron Fumarate/FA) 27 Mg Iron-800 Mcg Tablet 1 Each PO DAILY Assessment/Pt Instructions # Post-op, after Section # Anemia of Surgery blood loss, status post transfusion. Discharge Instructions Discharge Diet: No Restrictions Activity as Tolerated: Yes Discharge Physical Examination General Appearance: Oriented X3 Respiratory: Clear to Auscultation Abdominal: Soft, No Tenderness Extremities: No Edema, No Tenderness/Swelling Skin: No Rashes, No Significant Lesion Psych/Mental Status: Mental Status NL Allergies: Coded Allergies: codeine (Verified Allergy, Unknown, 09/10/18) Discharge Summary Date of Admission Mar 11, 2022 at 18:30 Date of Discharge 03/15/22 Discharge Date: Mar 15, 2022 Discharge Time: 09:00 Admission Diagnosis 40 weeks Gestation Consults/Procedures Procedures Induction of Labor Epidural Transfusion PRBC Discharge Diagnosis # 40 weeks Gestation # State # Delivery # Post-op Anemia of blood loss # Post Transfusion PRBC (1) Status: Resolved Qualifiers: Qualified Codes: Z3A.40 - 40 weeks gestation of LONG CARR DO Mar 14, 2022 11:00
[2022-03-14 17:06] LABS: BASOPHILS % (AUTO) 0 % (0-10); EOSINOPHILS # (AUTO) 0.1 10^3/uL (0.0-0.3); EOSINOPHILS % (AUTO) 0 % (0-10); HEMATOCRIT 21 % (35-52); LYMPHOCYTES % (AUTO) 10 % (12-44); MEAN CORPUSCULAR HEMOGLOBIN 26 pg (25-34); MEAN CORPUSCULAR HGB CONC 31 g/dL (32-36); MEAN CORPUSCULAR VOLUME 82 fL (80-99); MEAN PLATELET VOLUME 11.2 fL (9.0-12.2); MONOCYTES % (AUTO) 5 % (0-12); NEUTROPHILS # (AUTO) 16.4 10^3/uL (1.8-7.8); NEUTROPHILS % (AUTO) 82 % (42-75); PLATELET COUNT 200 10^3/uL (130-400); WHITE BLOOD COUNT 19.9 10^3/uL (4.3-11.0)
[2022-03-14 17:08] LABS: HEMOGLOBIN 6.6 g/dL (11.5-16.0)
[2022-03-15] MEDS: ACETAMINOPHEN 325 MG TABLET PO SCH ×2 (05:09→12:20)
[2022-03-15] MEDS: IBUPROFEN 600 MG (MOTRIN) TAB PO SCH ×2 (05:09→12:21)
[2022-03-15 05:12] VITALS: BP 118/73
[2022-03-15 08:37] VITALS: BP 118/72
[2022-03-15] MEDS: DOCUSATE SODIUM 100 MG (COLACE) CAP PO SCH (08:38)
[2022-03-15] MEDS: FERROUS SULF 325 MG (IRON) TAB PO SCH (08:38)
[2022-03-15 09:22] LABS: BASOPHILS % (AUTO) 0 % (0-10); EOSINOPHILS # (AUTO) 0.2 10^3/uL (0.0-0.3); EOSINOPHILS % (AUTO) 2 % (0-10); LYMPHOCYTES # (AUTO) 1.9 10^3/uL (1.0-4.0); LYMPHOCYTES % (AUTO) 15 % (12-44); MEAN CORPUSCULAR HEMOGLOBIN 25 pg (25-34); MEAN CORPUSCULAR HGB CONC 31 g/dL (32-36); MEAN CORPUSCULAR VOLUME 82 fL (80-99); MEAN PLATELET VOLUME 11.6 fL (9.0-12.2); MONOCYTES # (AUTO) 0.6 10^3/uL (0.0-1.0); MONOCYTES % (AUTO) 5 % (0-12); NEUTROPHILS # (AUTO) 9.7 10^3/uL (1.8-7.8); NEUTROPHILS % (AUTO) 77 % (42-75); PLATELET COUNT 185 10^3/uL (130-400); WHITE BLOOD COUNT 12.7 10^3/uL (4.3-11.0)
[2022-03-15] MEDS ORDERED: IBUP-844 PO (09:23)
[2022-03-15] MEDS ORDERED: DOCU100C37 PO (09:23)
[2022-03-15] MEDS ORDERED: OXYC1TAB11 PO (09:23)
[2022-03-15] MEDS ORDERED: FERR325T24 PO (09:23)
[2022-03-15 09:26] LABS: HEMATOCRIT 20 % (35-52); HEMOGLOBIN 6.2 g/dL (11.5-16.0)
== END 2022-03-15 15:35 | disposition home or self-care (01) | DRG 787 ==
LOC: LDRP 18:30
PROVIDERS: ADMIT Family Medicine; ATTEND Family Medicine
PROC: 10D00Z1 Extraction of Products of Conception, Low, Open Approach (ICD-10-PCS; principal; 2022-03-12 18:14)
DX: O77.9 Labor and delivery complicated by fetal stress, unspecified (principal); D62 Acute posthemorrhagic anemia; Z3A.40 40 weeks gestation of pregnancy; Z37.0 Single live birth; O90.81 Anemia of the puerperium
CPT/HCPCS: 36415; 81000; 85007; 85025; 85027; 86850; 86900; 86901; 86920; 87088; 94664

== ENCOUNTER 2022-09-28 02:07 | Emergency (ER) | payer BC, MEDICAID ==
[~2022-09-28] VITALS: Ht 162.5 cm; Wt 68.0 kg
[~2022-09-28 02:07] MED LIST changes: +DOCU100C37 PO; +FERR325T24 PO; +IBUP-844 PO; +OXYC1TAB11 PO
--- NOTE | 2022-09-28 02:22 | ED Abdominal Pain ---
General Chief Complaint: Abdominal/GI Problems Stated Complaint: RT SIDE PAIN History of Present Illness Date Seen by Provider: Sep 28, 2022 Time Seen by Provider: 02:22 Initial Comments 27-year-old female presents with right-sided periumbilical pain right lower quadrant pain. She reports she has some right prior umbilical pain all day yesterday along with frequent urination. She reports that around 1-1 30 that she awoke with sharp pain in went down more and lower abdomen. She denies any nausea vomiting fevers chills or other systemic complaints. Allergies and Home Medications Allergies Coded Allergies: codeine (Verified Allergy, Unknown, 09/10/18) Patient Home Medication List Home Medication List Reviewed: Yes Docusate Sodium (Docusate Sodium) 100 Mg Capsule, 100 MG PO BID Prescribed by: SUSHMA QUINTANILLA on 03/15/22922 Ferrous Sulfate (Ferosul) 325 Mg (65 Mg Iron) Tablet, 325 MG PO BID WITH MEALS Prescribed by: SUSHMA QUINTANILLA on 03/15/22922 Ibuprofen (Ibu) 600 Mg Tablet, 600 MG PO Q6H Prescribed by: SUSHMA QUINTANILLA on 03/15/22922 Oxycodone HCl/Acetaminophen (Oxycodone-Acetaminophen 5-325) 5 Mg-325 Mg Tablet, 1 TAB PO Q6H PRN for PAIN-SEVERE Prescribed by: SUSHMA QUINTANILLA on 03/15/22925 Vit/Iron Fumarate/FA ( Tablet) 27 Mg Iron-800 Mcg Tablet, 1 EACH PO DAILY, (Reported) Entered as Reported by: MEAGAN CHEUNG on 02/27/221945 Review of Systems Review of Systems Constitutional: No chills, No fever EENTM: No Symptoms Reported Respiratory: No Symptoms Reported Cardiovascular: No Symptoms Reported Gastrointestinal: See HPI, Abdominal Pain; Denies Diarrhea, Denies Nausea Genitourinary: See HPI, Frequency Musculoskeletal: no symptoms reported Skin: no symptoms reported Psychiatric/Neurological: No Symptoms Reported Endocrine: No Symptoms Reported Past Lhnlcna-Vnctjv-Jjpgso Hx Immunizations Up To Date Second COVID19 Vaccination Apolinar: 03/15 Seasonal Allergies Seasonal Allergies: No Past Medical History Surgeries: Yes ([place] teeth) Orthopedic, Tonsillectomy Respiratory: Yes Asthma Currently Using CPAP: No Currently Using BIPAP: No Cardiac: No Neurological: No Reproductive Disorders: Yes Female Reproductive Disorders: Endometriosis, Ovarian Cyst Genitourinary: Yes (Bacterial vaginosis) Gastrointestinal: No Musculoskeletal: No Endocrine: Yes Lupus HEENT: No Cancer: No Psychosocial: No Integumentary: No Blood Disorders: No Family Medical History No Pertinent Family Hx Physical Exam Vital Signs Vital Signs - First Documented 09/28/22 02:17 Temp 36.6 Pulse 97 Resp 20 B/P (MAP) 134/88 (103) Pulse Ox 100 O2 Delivery Room Air Capillary Refill : Height/Weight/BMI Height: 5'4.00" Weight: 123lbs. oz. 55.257200af; 28.29 BMI Method:Stated General Appearance: WD/WN, no apparent distress Neck: full range of motion, supple Respiratory: lungs clear, normal breath sounds Cardiovascular: normal peripheral pulses, regular rate, rhythm Gastrointestinal: soft, tenderness Extremities: normal range of motion Back: no CVA tenderness Neurologic/Psychiatric: alert, normal mood/affect, oriented x 3 Skin: normal color, warm/dry Progress/Results/Core Measures Results/Orders Lab Results Laboratory Tests Test 09/28/22 02:25 09/28/22 02:35 Range/Units White Blood Count 9.2 4.3-11.0 10^3/uL Red Blood Count 4.82 3.80-5.11 10^6/uL Hemoglobin 14.2 11.5-16.0 g/dL Hematocrit 43 35-52 % Mean Corpuscular Volume 89 80-99 fL Mean Corpuscular Hemoglobin 30 25-34 pg Mean Corpuscular Hemoglobin Concent 33 32-36 g/dL Red Cell Distribution Width 13.2 10.0-14.5 % Platelet Count 205 130-400 10^3/uL Mean Platelet Volume 11.1 9.0-12.2 fL Immature Granulocyte % (Auto) 0 % Neutrophils (%) (Auto) 57 42-75 % Lymphocytes (%) (Auto) 33 12-44 % Monocytes (%) (Auto) 9 0-12 % Eosinophils (%) (Auto) 1 0-10 % Basophils (%) (Auto) 0 0-10 % Neutrophils # (Auto) 5.2 1.8-7.8 10^3/uL Lymphocytes # (Auto) 3.0 1.0-4.0 10^3/uL Monocytes # (Auto) 0.8 0.0-1.0 10^3/uL Eosinophils # (Auto) 0.1 0.0-0.3 10^3/uL Basophils # (Auto) 0.0 0.0-0.1 10^3/uL Immature Granulocyte # (Auto) 0.0 0.0-0.1 10^3/uL Sodium Level 139 135-145 MMOL/L Potassium Level 3.5 L 3.6-5.0 MMOL/L Chloride Level 103 98-107 MMOL/L Carbon Dioxide Level 26 21-32 MMOL/L Anion Gap 10 5-14 MMOL/L Blood Urea Nitrogen 18 7-18 MG/DL Creatinine 0.85 0.60-1.30 MG/DL Estimat Glomerular Filtration Rate 96 BUN/Creatinine Ratio 21 Glucose Level 98 70-105 MG/DL Calcium Level 9.7 8.5-10.1 MG/DL Corrected Calcium 9.3 8.5-10.1 MG/DL Total Bilirubin 0.4 0.1-1.0 MG/DL Aspartate Amino Transf (AST/SGOT) 9 5-34 U/L Alanine Aminotransferase (ALT/SGPT) 25 0-55 U/L Alkaline Phosphatase 100 40-136 U/L C-Reactive Protein High Sensitivity 0.27 0.00-0.50 MG/DL Total Protein 7.8 6.4-8.2 GM/DL Albumin 4.5 3.2-4.5 GM/DL Urine Color YELLOW Urine Clarity CLEAR Urine pH 6.0 5-9 Urine Specific [place] 1.020 1.016-1.022 Urine Protein NEGATIVE NEGATIVE Urine Glucose (UA) NEGATIVE NEGATIVE Urine Ketones NEGATIVE NEGATIVE Urine Nitrite NEGATIVE NEGATIVE Urine Bilirubin NEGATIVE NEGATIVE Urine Urobilinogen 0.2 < = 1.0 MG/DL Urine Leukocyte Esterase NEGATIVE NEGATIVE Urine RBC (Auto) NEGATIVE NEGATIVE Urine RBC NONE /HPF Urine WBC 0-2 /HPF Urine Squamous Epithelial Cells 5-10 /HPF Urine Crystals NONE /LPF Urine Bacteria TRACE /HPF Urine Casts NONE /LPF Urine Mucus SMALL H /LPF Urine Culture Indicated NO Urine Test NEGATIVE NEGATIVE My Orders Orders - MIKE MCPHERSON L DO Cbc With Automated Diff (09/28/22 02:26) Comprehensive Metabolic Panel (09/28/22 02:26) Hs C Reactive Protein (09/28/22 02:26) Hcg,Qualitative Urine (09/28/22 02:26) Ua Culture If Indicated (09/28/22 02:26) Ns Iv 1000 Ml (Sodium Chloride 0.9%) (09/28/22 02:26) Vital Signs/I&O 09/28/22 02:17 Temp 36.6 Pulse 97 Resp 20 B/P (MAP) 134/88 (103) Pulse Ox 100 O2 Delivery Room Air Progress Progress Note : Progress Note Diagnostic studies were ordered, reviewed and interpreted by me. Patient had slightly low potassium otherwise no findings on CBC, CMP, CRP and urinalysis. Patient does report a history of ovarian cyst and this is likely the cause of her pain. Patient does not have significant discomfort at this time. CT abdomen pelvis was discussed but felt that with normal labs and no significant findings on exam it would not be indicated at this time.. Patient very unlikely to have appendicitis with a negative CBC and CRP with symptoms going on for at least 12 hours. Patient very unlikely have a kidney stone with a normal urinalysis also has some mild mucus. Patient given IV fluids and Toradol. Patient was discharged home to follow with her primary care provider for further evaluation if symptoms or not improving or return to ER as needed or if symptoms become significantly worse. Departure Impression Primary Impression: Abdominal pain Qualified Codes: R10.33 - Periumbilical pain Disposition: 01 HOME, SELF-CARE Condition: Stable Departure-Patient Inst. Referrals: SUSHMA QUINTANILLA MD (PCP/Family) Primary Care Physician Patient Instructions: Severe Abdominal Pain, Adult (DC) Add. Discharge Instructions: Tylenol ibuprofen as needed for discomfort. Follow-up with your primary care provider if symptoms persist for a couple days. Return to the ER with any concerns or significant worsening of your symptoms. All discharge instructions reviewed with patient and/or family. Voiced understanding. MIKE MCPHERSON DO Sep 28, 2022 02:22
[2022-09-28] MEDS ORDERED: NS IV 1000 ML 1,000 ML IV STA (02:26)
[2022-09-28 02:44] LABS: BILIRUBIN,URINE NEGATIVE (NEGATIVE); CLARITY,URINE CLEAR; COLOR,URINE YELLOW; GLUCOSE, URINE (UA) NEGATIVE (NEGATIVE); KETONES,URINE NEGATIVE (NEGATIVE); LEUKOCYTE ESTERASE ,URINE NEGATIVE (NEGATIVE); NITRITE,URINE NEGATIVE (NEGATIVE); PROTEIN,URINE NEGATIVE (NEGATIVE)
[2022-09-28 02:44] LABS: BASOPHILS % (AUTO) 0 % (0-10); EOSINOPHILS # (AUTO) 0.1 10^3/uL (0.0-0.3); EOSINOPHILS % (AUTO) 1 % (0-10); HEMATOCRIT 43 % (35-52); HEMOGLOBIN 14.2 g/dL (11.5-16.0); LYMPHOCYTES % (AUTO) 33 % (12-44); MEAN CORPUSCULAR HEMOGLOBIN 30 pg (25-34); MEAN CORPUSCULAR HGB CONC 33 g/dL (32-36); MEAN CORPUSCULAR VOLUME 89 fL (80-99); MEAN PLATELET VOLUME 11.1 fL (9.0-12.2); MONOCYTES # (AUTO) 0.8 10^3/uL (0.0-1.0); MONOCYTES % (AUTO) 9 % (0-12); NEUTROPHILS # (AUTO) 5.2 10^3/uL (1.8-7.8); NEUTROPHILS % (AUTO) 57 % (42-75); PLATELET COUNT 205 10^3/uL (130-400); WHITE BLOOD COUNT 9.2 10^3/uL (4.3-11.0)
[2022-09-28 02:54] LABS: BACTERIA,URINE TRACE /HPF; WBC,URINE 0-2 /HPF
[2022-09-28 02:57] LABS: ALBUMIN 4.5 GM/DL (3.2-4.5); POTASSIUM 3.5 MMOL/L (3.6-5.0)
[2022-09-28 02:58] LABS: CALCIUM 9.7 MG/DL (8.5-10.1)
[2022-09-28 03:00] LABS: TOTAL PROTEIN 7.8 GM/DL (6.4-8.2)
[2022-09-28 03:01] LABS: BILIRUBIN,TOTAL 0.4 MG/DL (0.1-1.0)
[2022-09-28 03:03] LABS: CREATININE SERUM 0.85 MG/DL (0.60-1.30)
[2022-09-28] MEDS ORDERED: KETOROLAC 30 MG/ML VIAL IVP STA (03:18)
[2022-09-28 03:40] VITALS: BP 113/72
== END 2022-09-28 03:44 | disposition home or self-care (01) ==
LOC: EDUNIT# 02:07 → ER 02:09
DX: R10.31 Right lower quadrant pain (principal); R10.33 Periumbilical pain; Z28.310 Unvaccinated for COVID-19
CPT/HCPCS: 36415; 80053; 81000; 84703; 85025; 86141